=== PATIENT | male | born 1945 | race Caucasian/White ===

== ENCOUNTER → 2019-03-21 | Outpatient (CLI) | payer MEDICARE, OTHER ==
--- NOTE | 2019-03-21 10:54 | REP ---
Left knee: Six views. History: Pain in the left knee. Findings: Six views of the left knee demonstrate medial joint space narrowing and early spurring consistent with osteoarthritis. There is mild lateral tibial plateau spurring as well. A fabella is noted posterolaterally. Vascular calcifications noted. On lateral film, there is osteoarthritic spurring at the superior pole of the patella. Burney view shows lateral patellar spurring. Impression: Medial and patellofemoral compartment osteoarthritic spurring. Medial compartment joint space narrowing. There is also vascular calcification. Electronically Signed by Rishi Srivastava MD 03/21/2019 08:31 P
--- NOTE | 2019-03-21 11:22 | REP ---
Left femur: Four views. History: Pain. Findings: Four views of the left femur show overall normal mineralization. Femoral head is smooth and rounded. Hip joint space is preserved. There is mild superior acetabular spurring. Mild arthritic changes are seen at the knee. Vascular calcification is noted. Impression: Degenerative changes at the knee and hip. Atherosclerotic vascular calcification. No acute bony abnormality. Electronically Signed by Rishi Srivastava MD 03/21/2019 08:32 P
== END ==
LOC: M WUC 09:38
PROVIDERS: ATTEND Physician Assistant
DX: M25.752 Osteophyte, left hip (principal); M17.12 Unilateral primary osteoarthritis, left knee; I70.202 Unspecified atherosclerosis of native arteries of extremities, left leg; M79.652 Pain in left thigh; M25.562 Pain in left knee

== ENCOUNTER → 2019-04-19 | Outpatient (CLI) | payer MEDICARE, OTHER ==
--- NOTE | 2019-04-19 18:45 | REP ---
MRI LEFT THIGH: Multiple sequences were obtained in the axial, coronal and sagittal planes. The left femur is visualized except for the femoral condyles. No abnormal bone marrow signal is seen. There is no occult fracture. No definite bone lesion is seen. Ill defined high signal is seen in the soft-tissues along the greater trochanter of the proximal left femur suggesting greater trochanteric tendinobursitis. This is relatively mild. No other abnormal soft tissue signal is seen. There is no definite suspicious soft tissue mass. Small inguinal lymph nodes do not appear to be pathologically enlarged. IMPRESSION: No occult osseous abnormality. No occult fracture. Findings suggesting mild greater trochanteric tendinobursitis. No other soft-tissue abnormality. Electronically Signed by Armando Ratliff MD 04/20/2019 12:39 P
== END ==
LOC: M RAD 10:51
PROVIDERS: ATTEND Orthopaedic Surgery Sports Medicine
DX: M79.652 Pain in left thigh (principal)

== ENCOUNTER → 2019-04-27 | Outpatient (REF) | payer MEDICARE, OTHER ==
[2019-04-27 18:37] LABS: APPEARANCE, URINE CLEAR (CLEAR); BACTERIA, URINE AUTO NEGATIVE (NEGATIVE); BILIRUBIN, URINE AUTO NEGATIVE (NEGATIVE); BLOOD, URINE BLOOD 2+ (NEGATIVE); CALCIUM OXALATE CRYSTALS SMALL; COLOR, URINE YELLOW (YELLOW); GLUCOSE, URINE (UA) AUTO NEGATIVE (NEGATIVE); KETONE, URINE AUTO NEGATIVE (NEGATIVE); LEUKOCYTE ESTERASE, URINE AUTO NEGATIVE (NEGATIVE); MUCUS, URINE SMALL (NEGATIVE); NITRITE, URINE AUTO NEGATIVE (NEGATIVE); PROTEIN, URINE AUTO NEGATIVE (NEGATIVE); RBC, URINE AUTO 0 /HPF (0-3); SPECIFIC GRAVITY URINE AUTO 1.021 (1.002-1.035); SQUAMOUS EPITHELIAL CELL UR AU 0 /HPF (0-6); WBC, URINE AUTO 2 /HPF (0-3)
== END ==
LOC: M SMT 17:14
PROVIDERS: ATTEND Nurse Practitioner Women's Health
DX: N40.0 Benign prostatic hyperplasia without lower urinary tract symptoms (principal)
CPT/HCPCS: 51798; 81001; 87086; G0463

== ENCOUNTER → 2019-05-08 | Outpatient (REF) | payer MEDICARE, OTHER ==
[2019-05-08 13:56] LABS: BASO % 0.4 % (0.0-1.0); EOS # 0.1 10^3/uL (0.0-0.50); EOS % 1.6 % (0.0-3.0); HEMATOCRIT 46.9 % (42.0-52.0); HEMOGLOBIN 15.4 g/dl (13.5-17.5); LYMPH # 1.9 10^3/uL (1.5-4.5); LYMPH % 23.4 % (24.0-44.0); MEAN CORPUSCULAR HEMOGLOBIN 28.8 pg (27.0-33.0); MEAN CORPUSCULAR HGB CONC 32.8 g/dl (32.0-36.5); MEAN CORPUSCULAR VOLUME 87.7 fl (80.0-96.0); MONO # 0.5 10^3/uL (0.0-0.8); MONO % 6.7 % (0.0-5.0); NEUTROPHILS # 5.4 10^3/uL (1.8-7.7); NEUTROPHILS % 67.4 % (36.0-66.0); PLATELET COUNT, AUTOMATED 187 10^3/uL (150-450); RED BLOOD COUNT 5.35 10^6/uL (4.30-6.10)
[2019-05-08 14:10] LABS: ALBUMIN 3.6 GM/DL (3.2-5.2); ALT/SGPT 95 U/L (12-78); BILIRUBIN,TOTAL 1.8 MG/DL (0.2-1.0); BLOOD UREA NITROGEN 17 MG/DL (7-18); CALCIUM LEVEL 8.8 MG/DL (8.8-10.2); CARBON DIOXIDE LEVEL 26 MEQ/L (21-32); CHLORIDE LEVEL 109 MEQ/L (98-107); GLOMERULAR FILTRATION RATE > 60.0 (>42); GLUCOSE, FASTING 174 MG/DL (70-100); POTASSIUM SERUM 3.9 MEQ/L (3.5-5.1); RHEUMATOID FACTOR QUANT < 10.0 IU/ML (<15.0); SODIUM LEVEL 143 MEQ/L (136-145); THYROID STIMULATING HORMONE 0.373 uIU/ML (0.358-3.740); TOTAL PROTEIN 7.3 GM/DL (6.4-8.2); VITAMIN B12 LEVEL > 2000 PG/ML (247-911)
[2019-05-08 14:11] LABS: FOLATE > 24.0 NG/ML (>5.4)
[2019-05-08 14:14] LABS: HEMOGLOBIN A1c 6.7 %
[2019-05-08 14:21] LABS: ERYTHROCYTE SEDIMENTATION RATE 11 mm/hr (0-20)
[2019-05-09 09:57] LABS: ALBUMIN 4.02 GM/DL (3.29-5.55); ALBUMIN % 55.1 % (55.8-66.1); ALPHA-1-GLOBULIN % 3.7 % (2.9-4.9); ALPHA-1-GLOBULINS 0.27 GM/DL (0.17-0.41); ALPHA-2-GLOBULINS 1.07 GM/DL (0.42-0.99); ALPHA-2-GLOBULINS % 14.7 % (7.1-11.8)
[2019-05-09 09:58] LABS: BETA-1-GLOBULINS 0.46 GM/DL (0.28-0.60); BETA-1-GLOBULINS % 6.3 % (4.7-7.2); BETA-2-GLOBULINS 0.39 GM/DL (0.19-0.55); BETA-2-GLOBULINS % 5.3 % (3.2-6.5); GAMMA GLOBULIN % 14.9 % (11.1-18.8); GAMMA GLOBULINS 1.09 GM/DL (0.65-1.58)
[2019-05-09 10:32] LABS: DRVV SCREEN 36.5 SEC
[2019-05-09 10:34] LABS: PTT LUPUS TYPE ANTICOAG SCREEN 0.9 (0-1.2)
[2019-05-12 14:55] LABS: ANCA-ATYPICAL <1:20 titer (Neg:<1:20); ANTI DS-DNA AB <1:10 titer (.); ANTINUCLEAR ANTIBODIES DIRECT Negative (Negative); CYTOPLASMIC NEUTROP AB ANCA-C <1:20 titer (Neg:<1:20); PERINUCLEAR AB ANCA-P <1:20 titer (Neg:<1:20); SJOGREN'S ANTI SS-A <0.2 AI (0.0-0.9); SJOGREN'S ANTI SS-B <0.2 AI (0.0-0.9); VITAMIN B1 LEVEL WHOLE BLOOD 136.6 nmol/L (66.5-200.0); VITAMIN B6,PYRIDOXAL PHOSPHATE 40.9 ug/L (5.3-46.7); VITAMIN E(ALPHA TOCOPHEROL) 10.9 mg/L (9.0-29.0); VITAMIN E(GAMMA TOCOPHEROL) 1.1 mg/L (0.5-4.9)
== END ==
LOC: M LABNEURO 10:44
PROVIDERS: ATTEND Psychiatry & Neurology Neurology
DX: G62.9 Polyneuropathy, unspecified (principal); E07.9 Disorder of thyroid, unspecified

== ENCOUNTER → 2019-06-08 | Outpatient (CLI) | payer MEDICARE, OTHER | LOC: M SMT 15:18 | PROVIDERS: ATTEND Nurse Practitioner Women's Health | DX: Z12.5 Encounter for screening for malignant neoplasm of prostate (principal) | CPT/HCPCS: 36415; G0103; G0463 ==

== ENCOUNTER → 2019-07-24 | Outpatient (CLI) | payer MEDICARE, OTHER ==
--- NOTE | 2019-07-24 16:18 | REP ---
CT of the chest without IV contrast: Comparison is an outside chest CT from camera failed dated 10/28/2012. There is no Report accompanying the outside CT . There are the following lung nodules: Left upper lobe, 4 mm, previously 4 mm. Right upper lobe, 5 mm, previously 7 mm. The right upper lobe, 4 mm, previously 4 mm. Left upper lobe, 6 mm, previously 6 mm. The left lower lobe, 5 mm, previously 5 mm. Right middle lobe, 4 mm, previously 4 mm. Right middle lobe, 4 mm, previously 5 mm. There are no enlarging lung nodules. There are no new lung nodules. There are no infiltrates or pleural effusions. There is no mediastinal lymph node enlargement. There is no axillary lymph node enlargement. In the absence of IV contrast the study is insensitive for hilar lymph node enlargement. The thoracic aorta is unremarkable except for occasional calcified atheroma. The cardiac size is normal. There is no pericardial effusion. The visualized upper abdominal contents are unremarkable except for a cyst in the upper pole of the left kidney. There is a fixed hiatal hernia, this is unchanged. Impression: There are multiple lung nodules. There has been no nodule enlargement. These are likely granulomas. There are no new nodules. There are no acute infiltrates or effusions. There is a fixed hiatal hernia. There is no lymph node enlargement. Electronically Signed by Armando Lombardo MD 07/24/2019 04:09 P
== END ==
LOC: M RAD 12:52
PROVIDERS: ATTEND Nurse Practitioner Family
DX: R91.8 Other nonspecific abnormal finding of lung field (principal)

== ENCOUNTER → 2020-01-09 | Outpatient (CLI) | payer MEDICARE, OTHER ==
[~2020-01-09] MED LIST: ALLO10TA PO; ASPI81TA85 PO; ATOR80TA59 PO; CELE1CAP4 PO; FLOM0.4C39 PO; LISI-542 PO; MYRB50TA PO; OMEP40CA97 PO; TOPR25TA PO
[2020-01-09 14:05] LABS: HEMOGLOBIN 15.6 g/dl (13.5-17.5); MEAN CORPUSCULAR HEMOGLOBIN 28.3 pg (27.0-33.0); MEAN CORPUSCULAR HGB CONC 32.5 g/dl (32.0-36.5); PLATELET COUNT, AUTOMATED 183 10^3/uL (150-450); RED BLOOD COUNT 5.52 10^6/uL (4.30-6.10)
--- NOTE | 2020-01-09 14:10 | REP ---
Clinical: Preoperative assessment. Benign facet hyperplasia. Technique: PA and lateral. Findings: Large hiatal hernia with air-fluid level noted. Cardiac silhouette is normal. Lung lewis demonstrate chronic-appearing interstitial changes. No focal consolidation, effusion, or pneumothorax. Skeletal structures are intact. Impression: Large hiatal hernia. Chronic changes. Electronically Signed by Shekhar Davila MD 01/09/2020 02:02 P
[2020-01-09 14:16] LABS: INR 1.14; PROTHROMBIN TIME 14.3 SECONDS (11.8-14.0)
[2020-01-09 14:17] LABS: PARTIAL THROMBOPLASTIN TIME 34.3 SECONDS (25.0-38.4)
[2020-01-09 14:43] LABS: BLOOD UREA NITROGEN 11 MG/DL (7-18); CALCIUM LEVEL 9.6 MG/DL (8.8-10.2); CARBON DIOXIDE LEVEL 27 MEQ/L (21-32); CHLORIDE LEVEL 108 MEQ/L (98-107); CREATININE FOR GFR 0.99 MG/DL (0.70-1.30); GLOMERULAR FILTRATION RATE > 60.0 (>42); GLUCOSE, FASTING 129 MG/DL (70-100); SODIUM LEVEL 142 MEQ/L (136-145)
== END ==
LOC: M LAB 13:27
PROVIDERS: ATTEND Nurse Practitioner Women's Health
DX: Z01.818 Encounter for other preprocedural examination (principal); N40.0 Benign prostatic hyperplasia without lower urinary tract symptoms; K44.9 Diaphragmatic hernia without obstruction or gangrene; Z79.82 Long term (current) use of aspirin; Z79.899 Other long term (current) drug therapy

== ENCOUNTER → 2020-01-18 | Outpatient (REF) | payer MEDICARE, OTHER ==
[2020-01-18 17:21] LABS: APPEARANCE, URINE CLEAR (CLEAR); BACTERIA, URINE AUTO NEGATIVE (NEGATIVE); BILIRUBIN, URINE AUTO NEGATIVE (NEGATIVE); BLOOD, URINE BLOOD NEGATIVE (NEGATIVE); CALCIUM OXALATE CRYSTALS SMALL; COLOR, URINE YELLOW (YELLOW); GLUCOSE, URINE (UA) AUTO NEGATIVE (NEGATIVE); KETONE, URINE AUTO NEGATIVE (NEGATIVE); LEUKOCYTE ESTERASE, URINE AUTO NEGATIVE (NEGATIVE); NITRITE, URINE AUTO NEGATIVE (NEGATIVE); PROTEIN, URINE AUTO NEGATIVE (NEGATIVE); RBC, URINE AUTO 1 /HPF (0-3); SPECIFIC GRAVITY URINE AUTO 1.019 (1.002-1.035); SQUAMOUS EPITHELIAL CELL UR AU 0 /HPF (0-6); UROBILINOGEN, URINE AUTO 0.2 mg/dL (0.0-2.0); WBC, URINE AUTO 5 /HPF (0-3)
== END ==
LOC: M SMT 16:48
PROVIDERS: ATTEND Nurse Practitioner Women's Health
DX: Z01.818 Encounter for other preprocedural examination (principal); N40.0 Benign prostatic hyperplasia without lower urinary tract symptoms

== ENCOUNTER 2020-01-26 08:57 | Day surgery (SDC) | payer MEDICARE, OTHER ==
[~2020-01-26] VITALS: Ht 162.6 cm; Wt 86.2 kg
[~2020-01-26 08:57] MED LIST changes: +LIDOCAINE 2% INJ 100 MG/5 ML SDV (FOR ANES.) As Ordered ONE; +LR 1,000 ML IV ONE; +MIDAZOLAM INJ 2 MG/2 ML VIAL (J2250) As Ordered ONE; +ONDANSETRON 4MG/2ML VIAL (J2405) As Ordered ONE; +PHENYLephrine HCL 500 MCG/5 ML (100MCG/ML) SYRINGE (J2370) As Ordered ONE; +ROCURONIUM BROMIDE 50 MG/5 ML VIAL As Ordered ONE; +SUGAMMADEX SODIUM 500 MG/5 ML VIAL (BRIDION) As Ordered ONE; +ceFAZolin SOD 2 GM in IV 1 EA IV ONE; +dexameTHASONE 4 MG/ML 1ML VIAL (J1100) As Ordered ONE; +ePHEDrine SULFATE 25 MG/5 ML(5MG/ML) SYRINGE As Ordered ONE; +fentaNYL 100 MCG/2 ML INJECTION (J3010) As Ordered ONE; +propofoL 200 MG/20 ML VIAL As Ordered ONE
--- NOTE | 2020-01-26 14:00 | RO ---
DATE OF PROCEDURE: 01/26/2020 PREPROCEDURE DIAGNOSIS: Benign prostatic hyperplasia. POSTPROCEDURE DIAGNOSIS: Benign prostatic hyperplasia, bladder tumors. PROCEDURE: Cystoscopy, transurethral resection of bladder tumors (less than 2 cm), urethral meatal dilation. SURGEON: Sherif Desphande MD COMPLEX CASE MANAGER: None. ANESTHESIA: General. OPERATIVE INDICATIONS: This is a 74-year-old male with benign prostatic hyperplasia with symptoms refractory to medical therapy. He was brought to the operating room today with plan to perform a cystoscopy, button trans urethral electrovaporization of the prostate. DESCRIPTION OF PROCEDURE: The patient was brought to the operating room and general anesthesia was induced. Prophylactic antibiotics were infused. He was then placed in the dorsal lithotomy position and prepped and draped in the usual sterile fashion. At this point, I attempted to insert a resectoscope using the visual obturator, but it would not go as the meatus was too narrow. I therefore used curved metal sounds to dilate the urethral meatus to 30 Maldivian. Once that was done, resectoscope was inserted into the urethral meatus and advanced into the bladder. Of note, immediately upon entering the bladder, the patient was found to have an approximately 1.5 cm collection of papillary bladder tumors on the right posterior wall. At this point, the resectoscope was traded out for a regular cystoscope and the bladder was thoroughly examined with a 30 and 70 degree lens and the only area of tumor was the patch on the right posterior wall. The bladder was mildly trebuculated. The patient had bilobar benign prostatic hyperplasia with fairly high riding bladder neck. Because of the finding of these bladder tumors, the decision was made to resect them and given the concern of bladder tumor seeding the prostate if the prostate procedure was performed and the decision was made not to perform the electrovaporization of the prostate. At this point, a loop was utilized to resect the collection of tumors completely. I resected down to the muscle layer. The tumors were then removed from the bladder to be sent for pathologic analysis. The base of the resection was then cauterized using the coagulation current. Once done, there was excellent hemostasis. Once I confirmed all the tumors were out, the resectoscope was removed and an 18-Maldivian England catheter was inserted into the bladder. The balloon was filled with 10 mL of sterile water and then the catheter was connected to gravity drainage. This marked conclusion of the procedure. The patient was taken out of dorsal lithotomy position, awakened from anesthesia and transported to the recovery room in stable condition. ESTIMATED BLOOD LOSS: 5 mL. COMPLICATIONS: None. SPECIMENS: Bladder tumors. PLAN: The patient will followup in the clinic next week for catheter removal and to discuss the pathology results.
[2020-01-26] MEDS ORDERED: ACETAMINOPHEN TAB 650MG DOSE (2X325MG) PO PRN (14:15)
[2020-01-26] MEDS ORDERED: LR 1,000 ML IV SCH (14:15)
[2020-01-26] MEDS ORDERED: fentaNYL 100 MCG/2 ML INJECTION (J3010) IV PRN (14:15)
[2020-01-26] MEDS ORDERED: ONDANSETRON 4MG/2ML VIAL (J2405) IV PRN (14:15)
[2020-01-26] MEDS ORDERED: PERCOCET 5MG/325MG TAB PO PRN (14:15)
[2020-01-26 16:00] VITALS: BP 133/72
== END 2020-01-26 16:31 | disposition home or self-care (01) ==
LOC: M SDC 08:57
PROVIDERS: ATTEND Urology
DX: N40.1 Benign prostatic hyperplasia with lower urinary tract symptoms (principal); C67.4 Malignant neoplasm of posterior wall of bladder; I25.10 Atherosclerotic heart disease of native coronary artery without angina pectoris; I10 Essential (primary) hypertension; F43.10 Post-traumatic stress disorder, unspecified; M10.9 Gout, unspecified; Z79.899 Other long term (current) drug therapy; K21.9 Gastro-esophageal reflux disease without esophagitis; E78.5 Hyperlipidemia, unspecified; Z86.73 Personal history of transient ischemic attack (TIA), and cerebral infarction without residual deficits; Z79.82 Long term (current) use of aspirin
CPT/HCPCS: 52234; 88305; J0690; J1100; J2250; J2370; J2405; J3010

== ENCOUNTER 2020-02-03 18:30 | Inpatient (IN) | payer MEDICARE, OTHER ==
[~2020-02-03] VITALS: Ht 162.6 cm; Wt 90.0 kg
[~2020-02-03 18:30] MED LIST changes: -LIDOCAINE 2% INJ 100 MG/5 ML SDV (FOR ANES.) As Ordered ONE; -LR 1,000 ML IV ONE; -MIDAZOLAM INJ 2 MG/2 ML VIAL (J2250) As Ordered ONE; -ONDANSETRON 4MG/2ML VIAL (J2405) As Ordered ONE; -PHENYLephrine HCL 500 MCG/5 ML (100MCG/ML) SYRINGE (J2370) As Ordered ONE; -ROCURONIUM BROMIDE 50 MG/5 ML VIAL As Ordered ONE; -SUGAMMADEX SODIUM 500 MG/5 ML VIAL (BRIDION) As Ordered ONE; -ceFAZolin SOD 2 GM in IV 1 EA IV ONE; -dexameTHASONE 4 MG/ML 1ML VIAL (J1100) As Ordered ONE; -ePHEDrine SULFATE 25 MG/5 ML(5MG/ML) SYRINGE As Ordered ONE; -fentaNYL 100 MCG/2 ML INJECTION (J3010) As Ordered ONE; -propofoL 200 MG/20 ML VIAL As Ordered ONE
[2020-02-03] MEDS ORDERED: LIDOCAINE 2% 5ML JELLY UROJET TOP ONE (19:15)
[2020-02-03] MEDS ORDERED: NS 1,000 ML IV ONE (19:15)
[2020-02-03 19:53] LABS: BASO % 0.2 % (0.0-1.0); EOS # 0.1 10^3/uL (0.0-0.5); EOS % 0.5 % (0.0-3.0); HEMATOCRIT 46.7 % (42.0-52.0); HEMOGLOBIN 15.5 g/dl (13.5-17.5); LYMPH # 1.2 10^3/uL (1.5-5.0); LYMPH % 7.3 % (24.0-44.0); MEAN CORPUSCULAR HEMOGLOBIN 28.1 pg (27.0-33.0); MEAN CORPUSCULAR HGB CONC 33.2 g/dl (32.0-36.5); MEAN CORPUSCULAR VOLUME 84.6 fl (80.0-96.0); MONO # 1.7 10^3/uL (0.0-0.8); MONO % 10.3 % (0.0-5.0); NEUTROPHILS # 13.7 10^3/uL (1.5-8.5); NEUTROPHILS % 81.1 % (36.0-66.0); PLATELET COUNT, AUTOMATED 218 10^3/uL (150-450); RED BLOOD COUNT 5.52 10^6/uL (4.30-6.10); WHITE BLOOD COUNT 16.9 10^3/uL (4.0-10.0)
[2020-02-03 20:05] LABS: INR 1.1; PROTHROMBIN TIME 13.9 SECONDS (11.8-14.0)
[2020-02-03 20:06] LABS: PARTIAL THROMBOPLASTIN TIME 35.9 SECONDS (25.0-38.4)
[2020-02-03] MEDS ORDERED: LevoFLOXacin IV 750 MG in IV 1 EA IV ONE (21:30)
[2020-02-03] MEDS ORDERED: SODIUM CHLORIDE 0.9% 1000ML IV STA (21:51)
[2020-02-03] MEDS ORDERED: ACETAMINOPHEN 325 MG TAB PO ONE (22:00)
[2020-02-03] MEDS ORDERED: ACET-683 PO (22:22)
[2020-02-03] MEDS ORDERED: ZYLO300T6 PO (22:22)
[2020-02-03] MEDS ORDERED: MAALOX 30 ML SUSP *UDC PO PRN (22:30)
[2020-02-03] MEDS ORDERED: ACETAMINOPHEN TAB 650MG DOSE (2X325MG) PO PRN (22:30)
[2020-02-03] MEDS ORDERED: MOM 30ML SUSPENSION UDC PO PRN (22:30)
[2020-02-03] MEDS ORDERED: LIDOCAINE 2% 5ML JELLY UROJET TOP PRN (22:45)
[2020-02-03 23:00] VITALS: BP 162/78
[2020-02-04] MEDS: OMEPRAZOLE 20 MG CAP PO SCH ×2 (00:08→20:17)
[2020-02-04] MEDS: allopurinoL 300 MG TAB PO SCH ×2 (00:08→20:17)
[2020-02-04] MEDS: PHENAZOPYRIDINE 100 MG TAB PO SCH ×4 (00:08→20:17)
[2020-02-04] MEDS: ATORVASTATIN 20 MG TAB PO SCH ×2 (00:08→20:18)
[2020-02-04] MEDS: ASPIRIN 81 MG ENTERIC TAB PO SCH ×2 (00:08→20:17)
[2020-02-04] MEDS: TAMSULOSIN 0.4 MG CAP PO SCH ×2 (00:09→20:17)
[2020-02-04] MEDS: lisinopriL 5 MG TAB PO SCH ×2 (00:09→16:56)
--- NOTE | 2020-02-04 01:32 | HPEPDOC ---
[facility] Medical History & Physical Date of Admission Feb 03, 2020 Date of Service: Feb 03, 2020 Primary Care Physician: RAFA GERBER MD [facility] Attending Physician: GEMA SHEPHERD MD History and Physical CHIEF COMPLAINT: Fevers HISTORY OF PRESENT ILLNESS: Patient is a 74-year-old male who presents to the emergency department after having fevers and chills earlier today. Patient rece ntly had a cystoscopy with bladder tumor resection on 01/26/2020. Patient has England catheter removed on 02/02/2020 and then began experiencing some dysuria with fevers and chills. Patient presented to the emergency department where he was found have a urinary tract infection. Patient was febrile and tachycardic on presentation. REVIEW OF SYSTEMS: General: Patient endorses fevers and chills but denies night sweats and unintentional weight loss HEENT: Patient denies headaches, changes in vision, sore throat. Cardiovascular: Patient denies chest pain, chest pressure, or palpitations Respiratory: Patient denies shortness of breath, cough GI: Patient denies abdominal pain, nausea, vomiting, diarrhea : Patient endorses pain and burning with urination Neurological: Patient denies numbness or tingling in extremities Extremities: Patient denies swelling or pain in extremities Skin: Patient denies any rashes or lesions. Hematologic: Patient denies any easy bruising. Lymphatic: Patient denies any lumps in his neck, axilla, or groin. PAST MEDICAL HISTORY: 1. BPH. 2. Bladder cancer. 3. Coronary artery disease. 4. Obstructive sleep apnea PAST SURGICAL HISTORY: 1. Cystoscopy with tumor resection. 2. Stent placement. 3. Tonsillectomy. 4. Vasectomy 5. Cataract surgery SOCIAL HISTORY: Patient lives at home with his and they're [facility]. Patient is retired but used to work in the [employer] for 45 years. Patient smoked but quit about 30 years ago. Patient denies alcohol or drug use. FAMILY HISTORY: Patient's brother has had hairy cell leukemia and patient's mother had bladder cancer ALLERGIES: Please see below. HOME MEDICATIONS: Please see below. PHYSICAL EXAMINATION: VITAL SIGNS: Temperature 102.3, pulse 107, respiratory rate 20, blood pressure 162/68, pulse oximetry 95% on room air. General: Alert and oriented male patient who was laying in bed when I walked in the room. Patient was no acute distress HEENT: Normocephalic, atraumatic, moist mucous membranes, posterior pharynx was nonerythematous, tympanic membranes are pearly-coreas without erythema. Neck: No lymphadenopathy, thyromegaly, or carotid bruits. Cardiac: Regular rate and rhythm, no murmurs, normal S1, normal S2 Pulm: Clear to auscultation bilaterally. No wheezes, rhonchi, rales Abd: Nondistended, nontender to palpation, normal bowel sounds Ext: No edema bilateral lower extremities Neuro: No gross neurological defects. Patient was able to move his extremities on command. Skin: Skin of the arms, lower legs, abdomen, back, head and neck were examined did not show any evidence of rash or lesions. LABORATORY DATA: See below. IMAGING: No new imaging is been performed during this admission. MICROBIOLOGY: Please see below. ASSESSMENT: Patient is a 74-year-old male who presents to the hospital with fevers and chills since earlier this afternoon who recently had a urological procedure performed and was diagnosed with urinary tract infection.. PLAN: 1. Sepsis secondary to urinary tract infection. Patient was started on levofloxacin. Patient received fluid bolus. Patient was febrile and tachycardic and had a leukocytosis upon admission. We will check lactic acid, monitor the patient's vital sign and urine out put closely as he recovers. 2. Urinary tract infection. Patient had a recent urological procedure. Patient will have England catheter in place. Urology has been contacted and is aware of the patient. We will continue with levofloxacin until cultures return and start pyridium because mirabegron is not on our formulary. 3. Uncontrolled HTN. Hypertensive urgency has resolved. We will resume his home meds 4. Obstructive sleep apnea. Patient will have home CPAP. 5. Chronic Coronary artery disease. Continue the patient's home medications. 6. Obesity complicating care. He has co-existing sleep apnea. We will check his A1C. 7. DVT prophylaxis: Lovenox. 8. CODE STATUS: Full code Disposition: Patient will be admitted to the progressive care unit for close monitoring of the patient's sepsis. We expect a greater than 2 midnights today. Vital Signs Vital Signs Date Time Temp Pulse Resp B/P (MAP) Pulse Ox O2 Delivery O2 Flow Rate FiO2 3/8/20 00:09 162/68 02/03/20 21:43 102.3 107 20 95 Room Air Laboratory Data Labs 24H Laboratory Tests 2 02/03/20 19:39: Immature Granulocyte % (Auto) 0.6, Neutrophils (%) (Auto) 81.1H, Lymphocytes (%) (Auto) 7.3L, Monocytes (%) (Auto) 10.3H, Eosinophils (%) (Auto) 0.5, Basophils (%) (Auto) 0.2, Neutrophils # (Auto) 13.7H, Lymphocytes # (Auto) 1.2L, Monocytes # (Auto) 1.7H, Eosinophils # (Auto) 0.1, Basophils # (Auto) 0.0, Nucleated Red Blood Cells % (auto) 0.0, Prothrombin Time 13.9, Prothromb Time International R atio 1.10, Activated Partial Thromboplast Time 35.9, Urine Color YELLOW, Urine Appearance HAZY, Urine pH 5.0, Urine Specific Franklin 1.020, Urine Protein NEGATIVE, Urine Glucose (UA) NEGATIVE, Urine Ketones NEGATIVE, Urine Blood 2+H, Urine Nitrite POSITIVEH, Urine Bilirubin NEGATIVE, Urine Urobilinogen 0.2, Urine Leukocyte Esterase 2+H, Urine WBC (Auto) 85H, Urine RBC (Auto) 18H, Urine Hyaline Casts (Auto) 0, Urine Bacteria (Auto) 1+H, Urine Squamous Epithelial Cells 0, Urine Mucus (Auto) SMALL, Urine Sperm (Auto) , Lactic Acid Level 3.0*H 02/03/20 19:44: POC Glucose (Misc Panel) 139H, POC Sodium (Misc Panel) 138, POC Potassium (Misc Panel) 4.2, POC Chloride (Misc Panel) 102, POC Total CO2 (Misc Panel) 24.0, POC Blood Urea Nitrogen (Misc Panel 14, POC Ionized Calcium (Misc Panel) 4.7, POC Creatinine (Misc Panel) 0.8, POC Hematocrit (Misc Panel) 48.0 02/04/20 00:11: Lactic Acid Level 2.2*H CBC/BMP Laboratory Tests 02/03/20 19:39 Microbiology Microbiology 02/04/20 Blood Culture, Received Pending 02/03/20 Blood Culture, Received Pending 02/03/20 Blood Culture, Received Pending 02/03/20 Urine Culture, Received Pending Home Medications Scheduled Allopurinol (Zyloprim) 300 Mg Tablet, 300 MG PO QHS Aspirin (Aspir 81) 81 Mg Tablet.dr, 81 MG PO QHS Atorvastatin Calcium (Atorvastatin Calcium) 80 Mg Tablet, 80 MG PO QHS Celecoxib (Celebrex) 200 Mg Capsule, 200 MG PO DAILY Lisinopril (Lisinopril) 5 Mg Tablet, 5 MG PO QPM TAKES AT DINNERTIME Metoprolol Succinate (Toprol Xl) 25 Mg Tab.er.24h, 25 MG PO DAILY Mirabegron (Myrbetriq) 50 Mg Tab.er.24h, 50 MG PO DAILY Omeprazole (Omeprazole) 40 Mg Capsule.dr, 40 MG PO QHS Tamsulosin HCl (Flomax) 0.4 Mg Capsule, 0.4 MG PO QHS Scheduled PRN Acetaminophen (Acetaminophen) 500 Mg Tablet, 1,000 MG PO Q6H PRN for PAIN Allergies Coded Allergies: No Known Allergies (Unverified , 01/01/20) A-FIB/CHADSVASC A-FIB History Current/History of A-Fib/PAF?: No GME ATTESTATION GME ATTESTATION My faculty preceptor for this patient encounter was physically present during the encounter and was fully available. All aspects of the patient interview, examination, medical decision making process, and medical care plan development were reviewed and approved by the faculty preceptor. The faculty preceptor is aware and concurs with the plan as stated in the body of this note and will attest to such by his/her cosignature. ATTENDING NOTE Time of service 10:30 PM I reviewed and edited the note and agree with the findings as documented. Mr. Slater is a 74-year-old with a past medical history of bladder cancer, CAD, DARYL, and BPH who underwent bladder tumor resection on the and had a England removed yesterday. Today he will be admitted for management of sepsis secondary to UTI and uncontrolled blood pressure. - We will follow-up with urology in the morning . Rest per Dr. Correa note JAYY MONTERROSO DO Feb 04, 2020 01:32 GEMA SHEPHERD MD Feb 04, 2020 04:14
[2020-02-04 04:00] VITALS: BP 147/86
[2020-02-04 05:07] LABS: HEMATOCRIT 45.2 % (42.0-52.0); HEMOGLOBIN 14.9 g/dl (13.5-17.5); MEAN CORPUSCULAR HEMOGLOBIN 28.1 pg (27.0-33.0); MEAN CORPUSCULAR VOLUME 85.1 fl (80.0-96.0); PLATELET COUNT, AUTOMATED 192 10^3/uL (150-450); RED BLOOD COUNT 5.31 10^6/uL (4.30-6.10); WHITE BLOOD COUNT 21.6 10^3/uL (4.0-10.0)
[2020-02-04 05:12] LABS: BLOOD UREA NITROGEN 13 MG/DL (7-18); CALCIUM LEVEL 8.7 MG/DL (8.8-10.2); CARBON DIOXIDE LEVEL 24 MEQ/L (21-32); CHLORIDE LEVEL 108 MEQ/L (98-107); CREATININE FOR GFR 0.97 MG/DL (0.70-1.30); GLOMERULAR FILTRATION RATE > 60.0 (>42); GLUCOSE, FASTING 145 MG/DL (70-100); MAGNESIUM LEVEL 1.7 MG/DL (1.8-2.4); SODIUM LEVEL 140 MEQ/L (136-145)
[2020-02-04 05:13] LABS: HEMOGLOBIN A1c 6.8 %
[2020-02-04] MEDS ORDERED: MAGNESIUM OXIDE 400 MG TAB (MAG-OX) PO ONE (05:30)
[2020-02-04] MEDS: ENOXAPARIN 40 MG/0.4 ML SYRINGE (J1650) SC SCH (05:40)
[2020-02-04 08:00] VITALS: BP 152/81
[2020-02-04] MEDS: SENOKOT S TAB PO SCH ×2 (09:00→19:43)
[2020-02-04] MEDS: MIRALAX *UNIT DOSE* 17GM PACKET PO SCH (09:00)
[2020-02-04] MEDS ORDERED: ENTER DRUG NAME HERE (PATIENT'S OWN MED) PO SCH (09:00)
[2020-02-04] MEDS: METOPROLOL SUCC *XL* 25MG TAB (TopROL *XL*) PO SCH (09:46)
[2020-02-04] MEDS: cefTRIAXone SOD 2 GM in D5W MINI-BAG PLUS 50 ML IV SCH (09:46)
[2020-02-04] MEDS: CelecoXIB (CeleBREX) 100 MG CAP PO SCH (09:46)
[2020-02-04] MEDS ORDERED: MAG SULF 1GM/100ML (MAG RUN) 1 GM in IV 1 EA IV ONE (10:00)
[2020-02-04] MEDS ORDERED: PERCOCET 5MG/325MG TAB PO ONE (10:00)
[2020-02-04] MEDS: NS 1,000 ML IV SCH ×2 (10:40→21:35)
[2020-02-04 12:00] VITALS: BP 108/59
[2020-02-04] MEDS ORDERED: PERCOCET 5MG/325MG TAB PO PRN (14:00)
[2020-02-04 15:53] VITALS: BP 124/62
[2020-02-04] MEDS ORDERED: LevoFLOXacin IV 750 MG in IV 1 EA IV SCH (21:00)
--- NOTE | 2020-02-04 21:40 | IPN ---
DATE: 02/04/2020 Patient complains of a severe pain at the England catheter site, screaming at the bedside, rating the pain as sharp, 10/10. Appears to be draining well. The patient had bladder tumor resection January 26, status post cystoscopy. Had catheter removed February 01 and presents with severe pain, fever, chills, and dysuria. Pain does not radiate and stays in the England catheter site. Not improvement with pain despite lidocaine. No gross hematuria. No fever this morning. Had a maximal temperature overnight of 102.3. Current temperature 97.4, pulse 105, sinus, respiratory rate 18, blood pressure 152/81, 91% on room air. GENERAL: Patient is awake, alert, oriented times three, answering questions appropriately. LUNGS: Clear to auscultation. No wheezes, rales, or rhonchi. HEART: S1, S2, sinus tachycardia. ABDOMEN: Soft, nontender, nondistended. Positive bowel sounds with England catheter in place. EXTREMITIES: No cyanosis, clubbing, or pitting edema. LABORATORY DATA: White count 21.6, hemoglobin 14, hematocrit 45, platelet count 192. Sodium 140, potassium 4, chloride 108, bicarbonate 24, BUN 13, creatinine 0.97, glucose 145. ASSESSMENT AND PLAN: This is a 74-year-old male with a history of BPH, bladder cancer, coronary artery disease (CAD), obstructive sleep apnea (DARYL) with recent bladder tumor resection 01/26/2020 who presents with increasing dysuria, pain, fever, chills, and urine retention after England was removed on February 01. ACTIVE ISSUES: 1. Urine retention requiring England catheter placement with severe pain. It appears to be draining and flushing well. Trial of IV fluids until lactic is normal. 2. Urinary tract infection related to recent England catheter placement and recent bladder tumor removal. Recent England catheter placement. It was discontinued on 02/02/2020. Patient was given Levaquin with worsening white count to 21,000. Therefore, we will change to intravenous ceftriaxone. Await urine culture results. 3. Sepsis secondary to urinary tract infection from previous indwelling catheter, currently on IV ceftriaxone with persistent lactic acidosis. Will continue IV fluid hydration, antibiotics, and supportive care. Pyridium for pain. As-needed Percocet. 4. Bladder cancer status post bladder tumor resection January 26. Defer to urology. 5. Deep vein thrombosis (DVT) prophylaxis. Compression stockings.
[2020-02-04 22:00] VITALS: BP 150/77
[2020-02-05] MEDS: ENOXAPARIN 40 MG/0.4 ML SYRINGE (J1650) SC SCH (05:42)
[2020-02-05 06:00] VITALS: BP 136/76
[2020-02-05 07:38] LABS: BASO % 0.2 % (0.0-1.0); EOS # 0.1 10^3/uL (0.0-0.5); EOS % 0.5 % (0.0-3.0); HEMATOCRIT 40.1 % (42.0-52.0); HEMOGLOBIN 13.4 g/dl (13.5-17.5); LYMPH # 1.7 10^3/uL (1.5-5.0); LYMPH % 10.6 % (24.0-44.0); MEAN CORPUSCULAR HEMOGLOBIN 28.5 pg (27.0-33.0); MEAN CORPUSCULAR HGB CONC 33.4 g/dl (32.0-36.5); MEAN CORPUSCULAR VOLUME 85.3 fl (80.0-96.0); MONO # 1.3 10^3/uL (0.0-0.8); MONO % 7.8 % (0.0-5.0); NEUTROPHILS % 80.2 % (36.0-66.0); PLATELET COUNT, AUTOMATED 174 10^3/uL (150-450); WHITE BLOOD COUNT 16.2 10^3/uL (4.0-10.0)
[2020-02-05 08:05] LABS: ALBUMIN 2.8 GM/DL (3.2-5.2); ALT/SGPT 31 U/L (12-78); BILIRUBIN,TOTAL 1.8 MG/DL (0.2-1.0); BLOOD UREA NITROGEN 11 MG/DL (7-18); CALCIUM LEVEL 8.7 MG/DL (8.8-10.2); CARBON DIOXIDE LEVEL 24 MEQ/L (21-32); CHLORIDE LEVEL 111 MEQ/L (98-107); CREATININE FOR GFR 0.88 MG/DL (0.70-1.30); GLOMERULAR FILTRATION RATE > 60.0 (>42); GLUCOSE, FASTING 109 MG/DL (70-100); PHOSPHORUS LEVEL 2.2 MG/DL (2.5-4.9); POTASSIUM SERUM 3.8 MEQ/L (3.5-5.1); SODIUM LEVEL 141 MEQ/L (136-145); TOTAL PROTEIN 6.8 GM/DL (6.4-8.2)
[2020-02-05] MEDS ORDERED: LEVA750T7 PO ×2 (08:41→10:30)
[2020-02-05 08:44] LABS: ERYTHROCYTE SEDIMENTATION RATE 53 mm/hr (0-20)
[2020-02-05] MEDS: SENOKOT S TAB PO SCH (08:56)
[2020-02-05] MEDS: MIRALAX *UNIT DOSE* 17GM PACKET PO SCH (08:56)
[2020-02-05] MEDS ORDERED: oxyBUTYnin *DITROPAN XL* 5 MG TABCR PO SCH (09:00)
[2020-02-05] MEDS: PHENAZOPYRIDINE 100 MG TAB PO SCH (09:09)
[2020-02-05 09:11] VITALS: BP 164/85
[2020-02-05] MEDS: CelecoXIB (CeleBREX) 100 MG CAP PO SCH (09:11)
[2020-02-05] MEDS: METOPROLOL SUCC *XL* 25MG TAB (TopROL *XL*) PO SCH (09:11)
[2020-02-05] MEDS: cefTRIAXone SOD 2 GM in D5W MINI-BAG PLUS 50 ML IV SCH (09:12)
[2020-02-05] MEDS ORDERED: PHEN-593 PO (10:28)
[2020-02-05] MEDS ORDERED: PYRI1TAB5 PO (10:30)
--- NOTE | 2020-02-05 13:26 | DS.PDOC ---
Discharge Summary General Date of Admission Feb 03, 2020 at 21:51 Date of Discharge 02/05/20 Discharge Summary DISCHARGE DIAGNOSES: Urine retention requiring Mcmullen catheter placement Pseudomonas Urinary tract infection related to recent Mcmullen catheter Sepsis secondary to urinary tract infection from previous indwelling catheter, Bladder cancer status post bladder tumor resection January 26 BPH coronary artery disease (CAD) obstructive sleep apnea (DARYL) DISCHARGE MEDICATIONS: PLS SEE BELOW HOSPITAL COURSE: This is a 74-year-old male with a history of BPH, bladder cancer, coronary artery disease (CAD), obstructive sleep apnea (DARYL) with recent bladder tumor resection 01/26/2020 who presents with increasing dysuria, pain, fever, chills, and urine retention after Mcmullen was removed on February 01. Urine retention requiring Mcmullen catheter placement with severe pain. It appears to be draining and flushing well. He received a Trial of IV fluids until his lactic acid resolved. outpt fu w urology for trial of void and dc mcmullen asoutpt. pt is familiar with mcmullen care . Pseudomonas Urinary tract infection related to recent Mcmullen catheter placement and recent bladder tumor removal. Recent Mcmullen catheter placement. It was discontinued on 02/02/2020. Patient was given Levaquin with worsening white count to 21,000. Therefore, he was changed to intravenous ceftriaxone and remained afebrile with decreased wbc toward normal. pt is discharge on po levaquin to complete a full course at home, and to have immediate fu with his urologist. Sepsis secondary to urinary tract infection from previous indwelling catheter, s/p ceftriaxone and iv fluids with resolution of his lactic acidosis. Pyridium for pain. As-needed Percocet. Bladder cancer status post bladder tumor resection January 26. Defer to urology for maintenance surveillance and further treatment DISCHARGE PHYSICAL EXAMINATION: VITALS: PLS SEE BELOW GENERAL: Patient is awake, alert, oriented times three, answering questions appropriately. LUNGS: Clear to auscultation. No wheezes, rales, or rhonchi. HEART: S1, S2, sinus tachycardia. ABDOMEN: Soft, nontender, nondistended. Positive bowel sounds with Mcmullen catheter in place. EXTREMITIES: No cyanosis, clubbing, or pitting edema. DISCHARGE LABORATORY DATA:PLS SEE BELOW DISCHARGE INSTRUCTIONS: IMMEDIATE FU WITH UROLOGIST WITHIN 1 WK OF DISCHARGE. RETURN TO ER WITH RECURRENT SYMPTOMS, PCP FU IN 1WK. TIME SPENT ON DISCHARGE; 30 MIN Vital Signs/I&Os Vital Signs Date Time Temp Pulse Resp B/P (MAP) Pulse Ox O2 Delivery O2 Flow Rate FiO2 02/05/20 09:11 102 164/85 02/05/20 06:00 99.1 18 93 Room Air I&O- Last 24 Hours up to 6 AM 02/05/20 06:00 Intake Total 2218 ml Output Total 2850 ml Balance -632 ml Laboratory Data Labs 24H Laboratory Tests 2 02/05/20 07:13: Immature Granulocyte % (Auto) 0.7, Neutrophils (%) (Auto) 80.2H, Lymphocytes (%) (Auto) 10.6L, Monocytes (%) (Auto) 7.8H, Eosinophils (%) (Auto) 0.5, Basophils (%) (Auto) 0.2, Neutrophils # (Auto) 13.0H, Lymphocytes # (Auto) 1.7, Monocytes # (Auto) 1.3H, Eosinophils # (Auto) 0.1, Basophils # (Auto) 0.0, Nucleated Red Blood Cells % (auto) 0.0, Erythrocyte Sedimentation Rate 53H, Anion Gap 6L, Glomerular Filtration Rate > 60.0, Calcium Level 8.7L, Phosphorus Level 2.2L, Magnesium Level 2.0, Total Bilirubin 1.8H, Aspartate Amino Transf (AST/SGOT) 23, Alanine Aminotransferase (ALT/SGPT) 31, Alkaline Phosphatase 78, C-Reactive Protein, Quantitative 15.10H, Total Protein 6.8, Albumin 2.8L, Albumin/Globulin Ratio 0.70L CBC/BMP Laboratory Tests 02/05/20 07:13 Microbiology Microbiology 02/04/20 Blood Culture - Preliminary, Resulted No growth after 24 hours . All specim... 02/03/20 Blood Culture - Preliminary, Resulted No growth after 24 hours . All specim... 02/03/20 Blood Culture - Preliminary, Resulted No growth after 24 hours . All specim... 02/03/20 Urine Culture - Preliminary, Resulted Pseudomonas Aeruginosa Discharge Medications Scheduled Allopurinol (Zyloprim) 300 Mg Tablet, 300 MG PO QHS, (Reported) Aspirin (Aspir 81) 81 Mg Tablet.dr, 81 MG PO QHS, (Reported) Atorvastatin Calcium (Atorvastatin Calcium) 80 Mg Tablet, 80 MG PO QHS, (Rep orted) Celecoxib (Celebrex) 200 Mg Capsule, 200 MG PO DAILY, (Reported) Levofloxacin (Levaquin) 750 Mg Tablet, 750 MG PO DAILY Levofloxacin (Levaquin) 750 Mg Tablet, 1 TAB PO DAILY Lisinopril (Lisinopril) 5 Mg Tablet, 5 MG PO QPM, (Reported) TAKES AT DINNERTIME Metoprolol Succinate (Toprol Xl) 25 Mg Tab.er.24h, 25 MG PO DAILY, (Reported) Mirabegron (Myrbetriq) 50 Mg Tab.er.24h, 50 MG PO DAILY, (Reported) Omeprazole (Omeprazole) 40 Mg Capsule.dr, 40 MG PO QHS, (Reported) Phenazopyridine HCl (Phenazopyridine HCl) 100 Mg Tablet, 100 MG PO TID Phenazopyridine HCl (Pyridium) 200 Mg Tablet, 1 TAB PO TID for urinary discomfort Tamsulosin HCl (Flomax) 0.4 Mg Capsule, 0.4 MG PO QHS, (Reported) Scheduled PRN Acetaminophen (Acetaminophen) 500 Mg Tablet, 1,000 MG PO Q6H PRN for PAIN, (Reported) Allergies Coded Allergies: No Known Allergies (Unverified , 01/01/20) KELVIN MCINTYRE MD Feb 05, 2020 13:23
== END 2020-02-05 12:26 | disposition home health service (06) | DRG 698 ==
LOC: M ED 18:30 → M ED INP 21:51 → ENRESERV 22:18 → M PCU 23:00 → M MSPAV 02-04 15:45
PROVIDERS: ADMIT Internal Medicine; ATTEND General Practice
DX: T83.511A Infection and inflammatory reaction due to indwelling urethral catheter, initial encounter (principal); A41.9 Sepsis, unspecified organism; E87.2 Acidosis; N39.0 Urinary tract infection, site not specified; N40.1 Benign prostatic hyperplasia with lower urinary tract symptoms; C67.9 Malignant neoplasm of bladder, unspecified; I25.10 Atherosclerotic heart disease of native coronary artery without angina pectoris; G47.33 Obstructive sleep apnea (adult) (pediatric); R33.9 Retention of urine, unspecified; I10 Essential (primary) hypertension; E66.9 Obesity, unspecified; Z79.82 Long term (current) use of aspirin; Z79.899 Other long term (current) drug therapy; B96.5 Pseudomonas (aeruginosa) (mallei) (pseudomallei) as the cause of diseases classified elsewhere; Z98.49 Cataract extraction status, unspecified eye; Z87.891 Personal history of nicotine dependence; Y83.1 Surgical operation with implant of artificial internal device as the cause of abnormal reaction of the patient, or of later complication, without mention of misadventure at the time of the procedure; Z68.34 Body mass index [BMI] 34.0-34.9, adult

== ENCOUNTER → 2020-02-09 | Outpatient (CLI) | payer MEDICARE, OTHER ==
[~2020-02-09] MED LIST changes: +ACET-683 PO; +ISOVUE-370 76% 100ML VIAL (Q9967) As Ordered ONE; +LEVA750T7 PO; +PHEN-593 PO; +PYRI1TAB5 PO; +ZYLO300T6 PO
--- NOTE | 2020-02-09 10:13 | REP ---
CT of the abdomen pelvis without and with IV contrast, CT urogram protocol: There are no comparison studies. The visualized lung lewis are unremarkable, except for a hiatal hernia containing the gastric fundus measuring 6.1 cm in diameter. The hepatic parenchyma is homogeneous. There are tiny gallbladder calculi in the gallbladder fundus. The gallbladder is otherwise unremarkable. There is no biliary duct dilatation. The pancreas and spleen are normal size and unremarkable. The adrenals are unremarkable. The there are approximate five left renal cysts and a single right renal cyst, all Bosniak type 1 cysts. The largest cyst is on the left at the mid pole posteriorly measuring 2.7 cm. There are no solid renal masses. There are no renal calculi. There is no hydronephrosis. There is no ureteral distension or obstruction. There is a [place] catheter in the bladder. The bladder is nondistended. There is diffuse bladder wall thickening, nonspecific, secondary to bladder nonsustained tube versus circumferential inflammation or circumferential neoplasm. The abdominal aorta is unremarkable except for occasional calcified atheroma. There is no periaortic adenopathy or mass. The bowel and mesentery are unremarkable except for occasional sigmoid colon diverticula without diverticulitis. There is wall thickening of the sigmoid colon, nonspecific, artifact from under distension versus colitis. The Pelvis: The the the appendix is unremarkable. There is no pelvic adenopathy or ascites. There is a 7 mm calcification posterior inferior to the bladder, likely a prostatolith. Impression: There is a [place] catheter in the bladder and the bladder is collapsed and cannot be further evaluated by CT. There is diffuse circumferential bladder wall thickening which could be artifact from bladder distension, inflammation or neoplasm. There is no hydronephrosis or hydroureter on the right on the left. There are no renal calculi. There are no solid renal masses. There are multiple bilateral Bosniak type 1 renal cysts. Hiatal hernia. No adenopathy, ascites or mass. Cholelithiasis. Otherwise, negative CT of the abdomen and pelvis. Electronically Signed by Armando Lombardo MD 02/09/2020 10:04 A
== END ==
LOC: M RAD 08:08
PROVIDERS: ATTEND Urology
DX: K44.9 Diaphragmatic hernia without obstruction or gangrene (principal); K80.20 Calculus of gallbladder without cholecystitis without obstruction; N32.89 Other specified disorders of bladder; N28.1 Cyst of kidney, acquired; C67.9 Malignant neoplasm of bladder, unspecified; Z96.0 Presence of urogenital implants
CPT/HCPCS: 74178; Q9967

== ENCOUNTER → 2020-03-05 | Outpatient (REF) | payer MEDICARE, OTHER ==
[~2020-03-05] MED LIST changes: -ASPI81TA85 PO; +ASPI81TA86 PO; -ISOVUE-370 76% 100ML VIAL (Q9967) As Ordered ONE; -LISI-542 PO; +LISI-898 PO; -PHEN-593 PO; +PHEN1TAB73 PO
[2020-03-05 17:44] LABS: APPEARANCE, URINE HAZY (CLEAR); BACTERIA, URINE AUTO 1+ (NEGATIVE); BILIRUBIN, URINE AUTO NEGATIVE (NEGATIVE); BLOOD, URINE BLOOD 1+ (NEGATIVE); COLOR, URINE YELLOW (YELLOW); GLUCOSE, URINE (UA) AUTO NEGATIVE (NEGATIVE); KETONE, URINE AUTO NEGATIVE (NEGATIVE); LEUKOCYTE ESTERASE, URINE AUTO 2+ (NEGATIVE); NITRITE, URINE AUTO NEGATIVE (NEGATIVE); PROTEIN, URINE AUTO NEGATIVE (NEGATIVE); RBC, URINE AUTO 2 /HPF (0-3); SPECIFIC GRAVITY URINE AUTO 1.005 (1.002-1.035); SQUAMOUS EPITHELIAL CELL UR AU 0 /HPF (0-6); UROBILINOGEN, URINE AUTO 0.2 mg/dL (0.0-2.0); WBC, URINE AUTO 66 /HPF (0-3)
== END ==
LOC: M SMT 16:50
PROVIDERS: ATTEND Urology
DX: C67.9 Malignant neoplasm of bladder, unspecified (principal); N40.0 Benign prostatic hyperplasia without lower urinary tract symptoms

== ENCOUNTER → 2020-03-05 | Outpatient (REF) | payer MEDICARE, OTHER ==
[~2020-03-05] MED LIST changes: +ASPI81TA85 PO; -ASPI81TA86 PO; +LISI-542 PO; -LISI-898 PO; +PHEN-593 PO; -PHEN1TAB73 PO
[2020-03-05 17:49] LABS: HEMATOCRIT 44.5 % (42.0-52.0); HEMOGLOBIN 14.5 g/dl (13.5-17.5); MEAN CORPUSCULAR HEMOGLOBIN 28.1 pg (27.0-33.0); MEAN CORPUSCULAR HGB CONC 32.6 g/dl (32.0-36.5); MEAN CORPUSCULAR VOLUME 86.2 fl (80.0-96.0); PLATELET COUNT, AUTOMATED 170 10^3/uL (150-450); RED BLOOD COUNT 5.16 10^6/uL (4.30-6.10); WHITE BLOOD COUNT 7.6 10^3/uL (4.0-10.0)
[2020-03-05 17:57] LABS: ALBUMIN 3.8 GM/DL (3.2-5.2); ALT/SGPT 88 U/L (12-78); BLOOD UREA NITROGEN 14 MG/DL (7-18); CALCIUM LEVEL 9.5 MG/DL (8.8-10.2); CARBON DIOXIDE LEVEL 27 MEQ/L (21-32); CHLORIDE LEVEL 107 MEQ/L (98-107); CREATININE FOR GFR 0.94 MG/DL (0.70-1.30); GLOMERULAR FILTRATION RATE > 60.0 (>42); GLUCOSE, FASTING 154 MG/DL (70-100); POTASSIUM SERUM 3.8 MEQ/L (3.5-5.1); SODIUM LEVEL 139 MEQ/L (136-145); TOTAL PROTEIN 7.5 GM/DL (6.4-8.2)
== END ==
LOC: M LABSMT 13:59
PROVIDERS: ATTEND Urology
DX: C67.9 Malignant neoplasm of bladder, unspecified (principal)

== ENCOUNTER → 2020-03-21 | Outpatient (REF) | payer MEDICARE, OTHER ==
[2020-03-21 18:14] LABS: APPEARANCE, URINE CLEAR (CLEAR); BACTERIA, URINE AUTO NEGATIVE (NEGATIVE); BILIRUBIN, URINE AUTO NEGATIVE (NEGATIVE); BLOOD, URINE BLOOD NEGATIVE (NEGATIVE); COLOR, URINE YELLOW (YELLOW); GLUCOSE, URINE (UA) AUTO NEGATIVE (NEGATIVE); KETONE, URINE AUTO NEGATIVE (NEGATIVE); LEUKOCYTE ESTERASE, URINE AUTO 2+ (NEGATIVE); NITRITE, URINE AUTO NEGATIVE (NEGATIVE); PROTEIN, URINE AUTO NEGATIVE (NEGATIVE); RBC, URINE AUTO 2 /HPF (0-3); SPECIFIC GRAVITY URINE AUTO 1.014 (1.002-1.035); SQUAMOUS EPITHELIAL CELL UR AU 0 /HPF (0-6); UROBILINOGEN, URINE AUTO 0.2 mg/dL (0.0-2.0); WBC, URINE AUTO 53 /HPF (0-3)
== END ==
LOC: M SMT 16:39
PROVIDERS: ATTEND Urology
DX: N39.0 Urinary tract infection, site not specified (principal)

== ENCOUNTER → 2020-04-02 | Outpatient (CLI) | payer MEDICARE, OTHER ==
[2020-04-02 14:25] LABS: ALBUMIN 3.7 GM/DL (3.2-5.2); BILIRUBIN,DIRECT 0.3 MG/DL (0.0-0.2); BILIRUBIN,TOTAL 1.8 MG/DL (0.2-1.0); TOTAL PROTEIN 7.4 GM/DL (6.4-8.2)
== END ==
LOC: M PLALAB 10:16
PROVIDERS: ATTEND Urology
DX: R74.8 Abnormal levels of other serum enzymes (principal)

== ENCOUNTER → 2020-05-06 | Outpatient (REF) | payer MEDICARE, OTHER | LOC: M SMT 17:12 | PROVIDERS: ATTEND Urology | DX: C67.9 Malignant neoplasm of bladder, unspecified (principal) ==

== ENCOUNTER → 2020-08-19 | Outpatient (REF) | payer MEDICARE, OTHER ==
[~2020-08-19] MED LIST changes: -ASPI81TA85 PO; +ASPI81TA86 PO
== END ==
LOC: M SMT 12:55
PROVIDERS: ATTEND Urology
DX: C67.9 Malignant neoplasm of bladder, unspecified (principal)

== ENCOUNTER → 2020-12-10 | Outpatient (CLI) | payer SELFPAY ==
[~2020-12-10] MED LIST changes: -PHEN-593 PO; +PHEN1TAB73 PO
== END ==
LOC: M LABSMTC 12:50
PROVIDERS: ATTEND Pediatrics
DX: Z20.822 Contact with and (suspected) exposure to COVID-19 (principal)

== ENCOUNTER → 2021-01-20 | Outpatient (REF) | payer MEDICARE, OTHER ==
[~2021-01-20] MED LIST changes: -LISI-542 PO; +LISI-898 PO
== END ==
LOC: M SMT 13:10
PROVIDERS: ATTEND Urology
DX: C67.9 Malignant neoplasm of bladder, unspecified (principal)

== ENCOUNTER → 2021-02-27 | Outpatient (CLI) | payer MEDICARE, OTHER | LOC: M LAB 09:32 | PROVIDERS: ATTEND Urology | DX: Z12.5 Encounter for screening for malignant neoplasm of prostate (principal) ==

== ENCOUNTER → 2021-02-27 | Outpatient (CLI) | payer MEDICARE, OTHER ==
[2021-02-27 11:05] LABS: HEMATOCRIT 45.9 % (42.0-52.0); HEMOGLOBIN 14.9 g/dl (13.5-17.5); MEAN CORPUSCULAR HEMOGLOBIN 28.2 pg (27.0-33.0); MEAN CORPUSCULAR HGB CONC 32.5 g/dl (32.0-36.5); MEAN CORPUSCULAR VOLUME 86.8 fl (80.0-96.0); PLATELET COUNT, AUTOMATED 173 10^3/uL (150-450); RED BLOOD COUNT 5.29 10^6/uL (4.30-6.10); WHITE BLOOD COUNT 6.4 10^3/uL (4.0-10.0)
[2021-02-27 12:08] LABS: ALBUMIN 3.5 GM/DL (3.2-5.2); ALT/SGPT 77 U/L (12-78); BILIRUBIN,TOTAL 1.5 MG/DL (0.2-1.0); BLOOD UREA NITROGEN 12 MG/DL (7-18); CALCIUM LEVEL 9.3 MG/DL (8.8-10.2); CARBON DIOXIDE LEVEL 26 MEQ/L (21-32); CHLORIDE LEVEL 108 MEQ/L (98-107); CHOLESTEROL LEVEL 125 MG/DL (<200); CHOLESTEROL RISK RATIO 3.787 (<5); CREATININE FOR GFR 0.78 MG/DL (0.70-1.30); GLOMERULAR FILTRATION RATE > 60.0 (>42); GLUCOSE, FASTING 140 MG/DL (70-100); HDL CHOLESTEROL 33 MG/DL (>40); LDL CHOLESTEROL 37 MG/DL (<100); NON-HDL-C 92 MG/DL; SODIUM LEVEL 141 MEQ/L (136-145); TRIGLYCERIDES LEVEL 274 MG/DL (<150); URIC ACID 3.1 MG/DL (3.5-7.2)
[2021-02-27 15:12] LABS: HEMOGLOBIN A1c 6.8 %
== END ==
LOC: M LAB 09:28
PROVIDERS: ATTEND Family Medicine
DX: M10.9 Gout, unspecified (principal); R73.01 Impaired fasting glucose; I10 Essential (primary) hypertension

== ENCOUNTER → 2021-07-07 | Outpatient (REF) | payer MEDICARE, OTHER ==
[~2021-07-07] MED LIST changes: +OMEP40CA4 PO; -OMEP40CA97 PO
== END ==
LOC: M SMT 13:44
PROVIDERS: ATTEND Urology
DX: C67.9 Malignant neoplasm of bladder, unspecified (principal)

== ENCOUNTER → 2021-10-13 | Outpatient (REF) | payer MEDICARE, OTHER | LOC: M SMT 13:34 | PROVIDERS: ATTEND Urology | DX: C67.9 Malignant neoplasm of bladder, unspecified (principal) | CPT/HCPCS: 52000; 88108; G0463 ==

== ENCOUNTER → 2022-01-12 | Outpatient (REF) | payer MEDICARE, OTHER ==
[~2022-01-12] MED LIST changes: -LISI-898 PO; +LISI5TAB11 PO
== END ==
LOC: M SMT 16:48
PROVIDERS: ATTEND Urology
DX: C67.9 Malignant neoplasm of bladder, unspecified (principal)

== ENCOUNTER → 2022-03-02 | Outpatient (CLI) | payer MEDICARE, OTHER ==
[2022-03-02 11:17] LABS: HEMATOCRIT 46.4 % (42.0-52.0); HEMOGLOBIN 15.2 g/dl (13.5-17.5); MEAN CORPUSCULAR HEMOGLOBIN 28.5 pg (27.0-33.0); MEAN CORPUSCULAR HGB CONC 32.8 g/dl (32.0-36.5); MEAN CORPUSCULAR VOLUME 87.1 fl (80.0-96.0); PLATELET COUNT, AUTOMATED 144 10^3/uL (150-450); RED BLOOD COUNT 5.33 10^6/uL (4.30-6.10); WHITE BLOOD COUNT 7.8 10^3/uL (4.0-10.0)
[2022-03-02 11:48] LABS: BLOOD UREA NITROGEN 13 MG/DL (7-18); CALCIUM LEVEL 9.1 MG/DL (8.8-10.2); CARBON DIOXIDE LEVEL 29 MEQ/L (21-32); CHLORIDE LEVEL 109 MEQ/L (98-107); CREATININE FOR GFR 0.86 MG/DL (0.70-1.30); GLOMERULAR FILTRATION RATE > 60.0 (>42); GLUCOSE, FASTING 150 MG/DL (70-100); POTASSIUM SERUM 3.9 MEQ/L (3.5-5.1); SODIUM LEVEL 142 MEQ/L (136-145)
== END ==
LOC: M LAB 10:14
PROVIDERS: ATTEND Urology
DX: C67.9 Malignant neoplasm of bladder, unspecified (principal); K44.9 Diaphragmatic hernia without obstruction or gangrene; M51.9 Unspecified thoracic, thoracolumbar and lumbosacral intervertebral disc disorder; Z79.899 Other long term (current) drug therapy

== ENCOUNTER → 2022-03-04 | Outpatient (CLI) | payer MEDICARE, OTHER | LOC: M RAD 09:17 | PROVIDERS: ATTEND Family Medicine | DX: M25.542 Pain in joints of left hand (principal) ==

== ENCOUNTER → 2022-03-04 | Outpatient (CLI) | payer MEDICARE, OTHER ==
[~2022-03-04] MED LIST changes: +ALLO300T2 PO; +ECOT81TA5 PO
== END ==
LOC: M EKG 11:11
PROVIDERS: ATTEND Urology
DX: Z01.818 Encounter for other preprocedural examination (principal); S62.655A Nondisplaced fracture of middle phalanx of left ring finger, initial encounter for closed fracture; C67.9 Malignant neoplasm of bladder, unspecified; I45.19 Other right bundle-branch block; M79.642 Pain in left hand; Y92.9 Unspecified place or not applicable; Y93.9 Activity, unspecified; Y99.9 Unspecified external cause status

== ENCOUNTER → 2022-04-07 | Outpatient (CLI) | payer MEDICARE, OTHER | LOC: M LAB 11:22 | PROVIDERS: ATTEND Urology | DX: C67.9 Malignant neoplasm of bladder, unspecified (principal); Z01.818 Encounter for other preprocedural examination; N39.0 Urinary tract infection, site not specified ==

== ENCOUNTER → 2022-04-13 | Outpatient (CLI) | payer MEDICARE, OTHER | LOC: M LABSMTC 09:41 | PROVIDERS: ATTEND Anesthesiology | DX: Z20.822 Contact with and (suspected) exposure to COVID-19 (principal) ==

== ENCOUNTER 2022-04-17 06:28 | Day surgery (SDC) | payer MEDICARE, OTHER ==
[~2022-04-17] VITALS: Ht 160 cm; Wt 83.9 kg
[~2022-04-17 06:28] MED LIST changes: +LIDOCAINE 1% MDV 20ML VIAL SQ PRN; +LR 1,000 ML IV ONE; +ceFAZolin SOD 2 GM in IV 1 EA IV ONE
[2022-04-17] MEDS ORDERED: OXYB10TA23 PO (06:55)
[2022-04-17] MEDS ORDERED: propofoL 200 MG/20 ML VIAL As Ordered ONE (08:00)
[2022-04-17] MEDS ORDERED: MIDAZOLAM INJ 2MG/2ML VIAL (J2250 PER 1MG) As Ordered ONE (08:00)
[2022-04-17] MEDS ORDERED: ROCURONIUM BROMIDE 50 MG/5 ML VIAL As Ordered ONE (08:00)
[2022-04-17] MEDS ORDERED: ONDANSETRON 4MG/2ML VIAL As Ordered ONE (08:00)
[2022-04-17] MEDS ORDERED: ACETAMINOPHEN 1000MG 100ML IV BTL (OFIRMEV) (J0131 PER 10MG) As Ordered ONE (08:00)
[2022-04-17] MEDS ORDERED: dexameTHASONE 4 MG/ML 1ML VIAL (J1100 PER 1MG) As Ordered ONE (08:00)
[2022-04-17] MEDS ORDERED: fentaNYL 100 MCG/2 ML INJECTION As Ordered ONE (08:00)
[2022-04-17] MEDS ORDERED: SUGAMMADEX SODIUM 500 MG/5 ML VIAL (BRIDION) As Ordered ONE (08:01)
[2022-04-17] MEDS ORDERED: mitoMYcin 40MG VIAL *UROLOGY* (J9280 PER 5MG) INTRAVESIC ONE (08:40)
[2022-04-17] MEDS ORDERED: LEVO250T3 PO (08:46)
[2022-04-17] MEDS ORDERED: ONDANSETRON 4MG/2ML VIAL IV PRN (08:50)
[2022-04-17] MEDS ORDERED: fentaNYL 100 MCG/2 ML INJECTION IV PRN (08:50)
[2022-04-17] MEDS ORDERED: oxyCODONE 5MG TAB PO PRN (08:50)
[2022-04-17] MEDS ORDERED: LR 1,000 ML IV SCH (08:50)
[2022-04-17] MEDS ORDERED: ACETAMINOPHEN TAB 650MG DOSE (2X325MG) PO PRN (08:50)
[2022-04-17] MEDS ORDERED: LIDOCAINE 2% 100MG/5ML SDV (FOR ANES.) As Ordered ONE (09:09)
[2022-04-17 10:59] VITALS: BP 146/65
== END 2022-04-17 11:04 | disposition home or self-care (01) ==
LOC: M SDC 06:28
PROVIDERS: ATTEND Urology
DX: N30.90 Cystitis, unspecified without hematuria (principal); N40.1 Benign prostatic hyperplasia with lower urinary tract symptoms; C67.9 Malignant neoplasm of bladder, unspecified
CPT/HCPCS: 52234; 88305; J0131; J0690; J1100; J2250; J2405; J3010; J9280

== ENCOUNTER → 2022-06-18 | Outpatient (CLI) | payer MEDICARE, OTHER ==
[~2022-06-18] MED LIST changes: +LEVO250T3 PO; -LIDOCAINE 1% MDV 20ML VIAL SQ PRN; -LR 1,000 ML IV ONE; +OXYB10TA23 PO; -ceFAZolin SOD 2 GM in IV 1 EA IV ONE
[2022-06-18 15:08] LABS: BASO % 0.5 % (0.0-1.0); EOS # 0.3 10^3/uL (0.0-0.5); EOS % 3.5 % (0.0-3.0); HEMATOCRIT 46.4 % (42.0-52.0); LYMPH # 1.8 10^3/uL (1.5-5.0); LYMPH % 21.9 % (24.0-44.0); MEAN CORPUSCULAR HEMOGLOBIN 27.6 pg (27.0-33.0); MEAN CORPUSCULAR HGB CONC 32.3 g/dl (32.0-36.5); MEAN CORPUSCULAR VOLUME 85.5 fl (80.0-96.0); MONO # 0.8 10^3/uL (0.0-0.8); MONO % 10.1 % (2.0-8.0); NEUTROPHILS # 5.3 10^3/uL (1.5-8.5); NEUTROPHILS % 63.5 % (36.0-66.0); PLATELET COUNT, AUTOMATED 207 10^3/uL (150-450); RED BLOOD COUNT 5.43 10^6/uL (4.30-6.10); WHITE BLOOD COUNT 8.3 10^3/uL (4.0-10.0)
[2022-06-18 15:29] LABS: HEMOGLOBIN A1c 6.3 %
[2022-06-18 15:30] LABS: ERYTHROCYTE SEDIMENTATION RATE 17 mm/hr (0-20)
[2022-06-18 15:43] LABS: ALBUMIN 3.5 GM/DL (3.2-5.2); ALT/SGPT 87 U/L (12-78); BILIRUBIN,TOTAL 1.3 MG/DL (0.2-1.0); BLOOD UREA NITROGEN 18 MG/DL (7-18); CALCIUM LEVEL 9.4 MG/DL (8.8-10.2); CARBON DIOXIDE LEVEL 26 MEQ/L (21-32); CHLORIDE LEVEL 109 MEQ/L (98-107); CREATININE FOR GFR 0.88 MG/DL (0.70-1.30); GLOMERULAR FILTRATION RATE > 60.0 (>42); GLUCOSE, FASTING 134 MG/DL (70-100); POTASSIUM SERUM 4.2 MEQ/L (3.5-5.1); RHEUMATOID FACTOR QUANT < 10.0 IU/ML (<15.0); SODIUM LEVEL 141 MEQ/L (136-145); THYROID STIMULATING HORMONE 0.323 uIU/ML (0.358-3.740); TOTAL PROTEIN 7.1 GM/DL (6.4-8.2)
[2022-06-18 16:21] LABS: VITAMIN B12 LEVEL 533 PG/ML
[2022-06-18 16:22] LABS: FOLATE 16.6 NG/ML
== END ==
LOC: M PLALAB 10:01
PROVIDERS: ATTEND Psychiatry & Neurology Neurology
DX: F09 Unspecified mental disorder due to known physiological condition (principal); Z79.899 Other long term (current) drug therapy; Z79.82 Long term (current) use of aspirin

== ENCOUNTER → 2022-06-19 | Outpatient (REF) | payer MEDICARE, OTHER ==
[2022-06-19 18:37] LABS: APPEARANCE, URINE CLOUDY (CLEAR); BACTERIA, URINE AUTO NEGATIVE (NEGATIVE); BILIRUBIN, URINE AUTO NEGATIVE (NEGATIVE); BLOOD, URINE BLOOD 3+ (NEGATIVE); CALCIUM OXALATE CRYSTALS SMALL; COLOR, URINE YELLOW (YELLOW); GLUCOSE, URINE (UA) AUTO NEGATIVE (NEGATIVE); KETONE, URINE AUTO NEGATIVE (NEGATIVE); LEUKOCYTE ESTERASE, URINE AUTO 1+ (NEGATIVE); MUCUS, URINE SMALL (NEGATIVE); NITRITE, URINE AUTO NEGATIVE (NEGATIVE); PROTEIN, URINE AUTO 1+ mg/dL (NEGATIVE); RBC, URINE AUTO 4 /HPF (0-3); SQUAMOUS EPITHELIAL CELL UR AU 0 /HPF (0-6); UROBILINOGEN, URINE AUTO 0.2 mg/dL (0.0-2.0); WBC, URINE AUTO 35 /HPF (0-3)
== END ==
LOC: M SMT 16:44
PROVIDERS: ATTEND Urology
DX: R30.0 Dysuria (principal)

== ENCOUNTER → 2022-06-26 | Outpatient (REF) | payer MEDICARE, OTHER ==
[~2022-06-26] MED LIST changes: +LEVO1TAB38 PO; -LEVO250T3 PO
[2022-06-26 17:26] LABS: APPEARANCE, URINE CLEAR (CLEAR); BACTERIA, URINE AUTO NEGATIVE (NEGATIVE); BILIRUBIN, URINE AUTO NEGATIVE (NEGATIVE); BLOOD, URINE BLOOD 2+ (NEGATIVE); COLOR, URINE STRAW (YELLOW); GLUCOSE, URINE (UA) AUTO NEGATIVE (NEGATIVE); KETONE, URINE AUTO NEGATIVE (NEGATIVE); LEUKOCYTE ESTERASE, URINE AUTO TRACE (NEGATIVE); MUCUS, URINE SMALL (NEGATIVE); NITRITE, URINE AUTO NEGATIVE (NEGATIVE); PROTEIN, URINE AUTO NEGATIVE (NEGATIVE); RBC, URINE AUTO 1 /HPF (0-3); SPECIFIC GRAVITY URINE AUTO 1.006 (1.002-1.035); SQUAMOUS EPITHELIAL CELL UR AU 0 /HPF (0-6); UROBILINOGEN, URINE AUTO 0.2 mg/dL (0.0-2.0); WBC, URINE AUTO 3 /HPF (0-3)
== END ==
LOC: M SMT 16:47
PROVIDERS: ATTEND Urology
DX: N39.0 Urinary tract infection, site not specified (principal)

== ENCOUNTER → 2022-09-28 | Outpatient (REF) | payer MEDICARE, OTHER | LOC: M SMT 12:51 | PROVIDERS: ATTEND Urology | DX: C67.9 Malignant neoplasm of bladder, unspecified (principal) ==

== ENCOUNTER → 2022-12-25 | Outpatient (CLI) | payer MEDICARE, OTHER ==
[2022-12-25 11:33] LABS: BLOOD UREA NITROGEN 18 MG/DL (9-23); CREATININE FOR GFR 0.72 MG/DL (0.70-1.30); GLOMERULAR FILTRATION RATE > 60.0 (>42)
== END ==
LOC: M LAB 09:58
PROVIDERS: ATTEND Surgery
DX: Z01.810 Encounter for preprocedural cardiovascular examination (principal)

== ENCOUNTER → 2023-01-06 | Outpatient (CLI) | payer MEDICARE, OTHER ==
[~2023-01-06] MED LIST changes: +ISOVUE-370 76% 100ML VIAL As Ordered ONE
== END ==
LOC: M RAD 08:29
PROVIDERS: ATTEND Surgery
DX: D17.1 Benign lipomatous neoplasm of skin and subcutaneous tissue of trunk (principal); R91.8 Other nonspecific abnormal finding of lung field
CPT/HCPCS: 71260; Q9967

== ENCOUNTER → 2023-01-08 | Outpatient (CLI) | payer MEDICARE, OTHER ==
[~2023-01-08] MED LIST changes: -ISOVUE-370 76% 100ML VIAL As Ordered ONE
== END ==
LOC: M PLAIMG 09:11
PROVIDERS: ATTEND Family Medicine
DX: R10.12 Left upper quadrant pain (principal); C67.9 Malignant neoplasm of bladder, unspecified; K80.20 Calculus of gallbladder without cholecystitis without obstruction; R91.8 Other nonspecific abnormal finding of lung field

== ENCOUNTER 2023-03-16 13:46 | Day surgery (SDC) | payer MEDICARE, OTHER ==
[~2023-03-16] VITALS: Ht 160 cm; Wt 85.7 kg
[2023-03-16] MEDS ORDERED: LR 1,000 ML IV SCH (13:50)
[2023-03-16] MEDS ORDERED: ceFAZolin SOD 2 GM in IV 1 EA IV ONE (14:40)
[2023-03-16] MEDS ORDERED: MIDAZOLAM INJ 2MG/2ML VIAL As Ordered ONE (16:21)
[2023-03-16] MEDS ORDERED: LIDOCAINE 2% 100MG/5ML SDV (FOR ANES.) As Ordered ONE (16:22)
[2023-03-16] MEDS ORDERED: propofoL 200 MG/20 ML VIAL As Ordered ONE (16:22)
[2023-03-16] MEDS ORDERED: fentaNYL 100 MCG/2 ML INJECTION As Ordered ONE (16:22)
[2023-03-16] MEDS ORDERED: BUPIVACAINE/EPIN 0.25% 30ML VIAL As Ordered ONE (16:41)
[2023-03-16] MEDS ORDERED: LIDOCAINE 1% SDV 30ML VIAL As Ordered ONE (16:43)
[2023-03-16 17:45] VITALS: BP 174/84
== END 2023-03-16 17:50 | disposition home or self-care (01) ==
LOC: M SDC 13:46
PROVIDERS: ATTEND Surgery
DX: D17.1 Benign lipomatous neoplasm of skin and subcutaneous tissue of trunk (principal); I10 Essential (primary) hypertension; I25.10 Atherosclerotic heart disease of native coronary artery without angina pectoris; E11.9 Type 2 diabetes mellitus without complications; M48.00 Spinal stenosis, site unspecified; F43.10 Post-traumatic stress disorder, unspecified; I69.392 Facial weakness following cerebral infarction; R91.8 Other nonspecific abnormal finding of lung field; G47.30 Sleep apnea, unspecified; N40.1 Benign prostatic hyperplasia with lower urinary tract symptoms; R32 Unspecified urinary incontinence; Z87.891 Personal history of nicotine dependence; Z79.899 Other long term (current) drug therapy; Z79.82 Long term (current) use of aspirin; Z95.5 Presence of coronary angioplasty implant and graft
CPT/HCPCS: 11406; 12034; 88304; 93005; J0690; J2250; J3010

== ENCOUNTER → 2023-03-18 | Outpatient (CLI) | payer MEDICARE, OTHER | LOC: M PLAIMG 14:14 | PROVIDERS: ATTEND Family Medicine | DX: M54.50 Low back pain, unspecified (principal) ==

== ENCOUNTER → 2023-03-29 | Outpatient (REF) | payer MEDICARE, OTHER | LOC: M SMT 13:05 | PROVIDERS: ATTEND Urology | DX: C67.9 Malignant neoplasm of bladder, unspecified (principal) ==

== ENCOUNTER → 2023-03-31 | Outpatient (CLI) | payer MEDICARE, OTHER | LOC: M RAD 11:27 | PROVIDERS: ATTEND Family Medicine | DX: I70.213 Atherosclerosis of native arteries of extremities with intermittent claudication, bilateral legs (principal) ==

== ENCOUNTER → 2023-06-03 | Outpatient (CLI) | payer MEDICARE, OTHER ==
[~2023-06-03] MED LIST changes: +ISOVUE-370 76% 100ML VIAL As Ordered ONE
== END ==
LOC: M RAD 14:04
PROVIDERS: ATTEND Surgery Vascular Surgery
DX: I73.9 Peripheral vascular disease, unspecified (principal)
CPT/HCPCS: 75635; Q9967

== ENCOUNTER → 2023-10-08 | Outpatient (REF) | payer MEDICARE, OTHER ==
[~2023-10-08] MED LIST changes: -ISOVUE-370 76% 100ML VIAL As Ordered ONE; +POTA-151 PO
== END ==
LOC: M SMT 17:13
PROVIDERS: ATTEND Urology
DX: C67.9 Malignant neoplasm of bladder, unspecified (principal); R39.15 Urgency of urination; Z79.891 Long term (current) use of opiate analgesic; Z79.82 Long term (current) use of aspirin; Z79.899 Other long term (current) drug therapy; Z90.79 Acquired absence of other genital organ(s); Z80.8 Family history of malignant neoplasm of other organs or systems; Z80.6 Family history of leukemia

== ENCOUNTER 2023-10-13 10:20 | Outpatient (RCR) | payer MEDICARE, OTHER ==
[~2023-10-13 10:20] MED LIST changes: -POTA-151 PO
[2023-10-15] MEDS ORDERED: MYRB50TA PO (18:03)
[2023-10-15] MEDS ORDERED: POTA-151 PO (23:33)
== END 2023-10-28 ==
LOC: M ST 10:20
PROVIDERS: ATTEND Family Medicine
DX: R13.10 Dysphagia, unspecified (principal)

== ENCOUNTER 2023-10-15 17:46 | Emergency (ER) | payer MEDICARE, OTHER ==
[~2023-10-15] VITALS: Ht 160 cm; Wt 81.1 kg
[2023-10-15 17:48] VITALS: TEMP 97.9
[2023-10-15] MEDS ORDERED: MYRB50TA PO (18:03)
[2023-10-15 19:00] LABS: BASO % 0.5 % (0.0-1.0); EOS # 0.2 10^3/uL (0.0-0.5); HEMATOCRIT 43.7 % (42.0-52.0); HEMOGLOBIN 14.5 g/dl (13.5-17.5); LYMPH # 2.7 10^3/uL (1.5-5.0); LYMPH % 31.3 % (24.0-44.0); MEAN CORPUSCULAR HEMOGLOBIN 27.2 pg (27.0-33.0); MEAN CORPUSCULAR HGB CONC 33.2 g/dl (32.0-36.5); MONO # 0.7 10^3/uL (0.0-0.8); MONO % 8.3 % (2.0-8.0); NEUTROPHILS % 57.7 % (36.0-66.0); PLATELET COUNT, AUTOMATED 207 10^3/uL (150-450); RED BLOOD COUNT 5.33 10^6/uL (4.30-6.10); WHITE BLOOD COUNT 8.6 10^3/uL (4.0-10.0)
[2023-10-15 19:14] LABS: INR 1.11; PARTIAL THROMBOPLASTIN TIME 32.1 SECONDS (24.8-34.2)
[2023-10-15 19:28] LABS: LIPASE 39 U/L (12-53)
[2023-10-15 19:36] LABS: RSV AMPLIFICATION NEGATIVE (NEGATIVE)
[2023-10-15 19:38] LABS: ALBUMIN 3.4 G/DL (3.2-5.2); ALKALINE PHOSPHATASE 103 U/L (46-116); ALT/SGPT 45 U/L (7.0-40); AST/SGOT 62 U/L (<34); BILIRUBIN,DIRECT 0.4 MG/DL (<0.4); BILIRUBIN,TOTAL 1.6 MG/DL (0.3-1.2); BLOOD UREA NITROGEN 14 MG/DL (9-23); CALCIUM LEVEL 9.1 MG/DL (8.3-10.6); CARBON DIOXIDE LEVEL 30 MMOL/L (20-31); CHLORIDE LEVEL 104 MMOL/L (98-107); CK-MB VALUE MASS < 1.0 NG/ML (<3.6); CPK CREATINE PHOSPHOKINASE 62 U/L (46-171); CREATININE FOR GFR 0.74 MG/DL (0.70-1.30); GLOMERULAR FILTRATION RATE > 60.0 (>42); GLUCOSE, FASTING 122 MG/DL (74-106); MB/CK RELATIVE INDEX 1.61 (< OR =4); POTASSIUM SERUM 2.9 MMOL/L (3.5-5.1); SODIUM LEVEL 144 MMOL/L (136-145); THYROID STIMULATING HORMONE 0.736 uIU/ML (0.55-4.78); TOTAL PROTEIN 6.8 G/DL (5.7-8.2)
[2023-10-15] MEDS ORDERED: hydrALAZINE 20MG/ML 1ML VIAL IV STA ×2 (19:38→20:31)
[2023-10-15] MEDS ORDERED: KCL 10MEQ/100ML SWI (KRUN) 10 MEQ in IV 1 EA IV ONE (19:40)
[2023-10-15] MEDS ORDERED: POTASSIUM CHLORIDE 10MEQ SR TABLET PO ONE (19:40)
[2023-10-15 20:46] VITALS: BP 181/93
[2023-10-15 21:20] LABS: CK-MB VALUE MASS < 1.0 NG/ML (<3.6)
[2023-10-15 21:21] LABS: CPK CREATINE PHOSPHOKINASE 50 U/L (46-171)
[2023-10-15 23:17] LABS: BLOOD UREA NITROGEN 13 MG/DL (9-23); CALCIUM LEVEL 9.2 MG/DL (8.3-10.6); CARBON DIOXIDE LEVEL 28 MMOL/L (20-31); CHLORIDE LEVEL 105 MMOL/L (98-107); CK-MB VALUE MASS < 1.0 NG/ML (<3.6); CPK CREATINE PHOSPHOKINASE 57 U/L (46-171); CREATININE FOR GFR 0.67 MG/DL (0.70-1.30); GLOMERULAR FILTRATION RATE > 60.0 (>42); GLUCOSE, FASTING 146 MG/DL (74-106); MB/CK RELATIVE INDEX 1.75 (< OR =4); POTASSIUM SERUM 3.2 MMOL/L (3.5-5.1); SODIUM LEVEL 143 MMOL/L (136-145)
[2023-10-15] MEDS ORDERED: POTA-151 PO (23:33)
[2023-10-15 23:45] VITALS: BP 176/85; O2SAT 96
== END 2023-10-16 00:04 | disposition home or self-care (01) ==
LOC: M ED 17:46
DX: E87.6 Hypokalemia (principal); I10 Essential (primary) hypertension; Z87.442 Personal history of urinary calculi; Z86.73 Personal history of transient ischemic attack (TIA), and cerebral infarction without residual deficits; E78.5 Hyperlipidemia, unspecified; K21.9 Gastro-esophageal reflux disease without esophagitis; Z95.5 Presence of coronary angioplasty implant and graft; Z79.82 Long term (current) use of aspirin; Z79.899 Other long term (current) drug therapy
CPT/HCPCS: 71045; 80047; 80048; 80076; 82550; 82553; 83690; 83735; 83880; 84443; 84484; 85025; 85610; 85730; 87631; 93005; 93041; 94760; 96365; 96375; 96376; 99285; J0360

== ENCOUNTER → 2023-10-18 | Outpatient (CLI) | payer MEDICARE, OTHER ==
[~2023-10-18] MED LIST changes: +POTA-151 PO
[2023-10-18 13:08] LABS: BLOOD UREA NITROGEN 14 MG/DL (9-23); CALCIUM LEVEL 9.2 MG/DL (8.3-10.6); CARBON DIOXIDE LEVEL 30 MMOL/L (20-31); CHLORIDE LEVEL 105 MMOL/L (98-107); CREATININE FOR GFR 0.79 MG/DL (0.70-1.30); GLOMERULAR FILTRATION RATE > 60.0 (>42); GLUCOSE, FASTING 147 MG/DL (74-106); POTASSIUM SERUM 3.2 MMOL/L (3.5-5.1); SODIUM LEVEL 143 MMOL/L (136-145)
== END ==
LOC: M LAB 12:08
PROVIDERS: ATTEND Family Medicine
DX: E87.6 Hypokalemia (principal)

== ENCOUNTER → 2023-11-11 | Outpatient (CLI) | payer MEDICARE, OTHER | LOC: M CARPUL 07:31 | PROVIDERS: ATTEND Nurse Practitioner Family | DX: R06.02 Shortness of breath (principal) ==

== ENCOUNTER → 2023-11-12 | Outpatient (CLI) | payer MEDICARE, OTHER | LOC: M RAD 07:41 | PROVIDERS: ATTEND Family Medicine | DX: K81.0 Acute cholecystitis (principal); K76.0 Fatty (change of) liver, not elsewhere classified; N28.1 Cyst of kidney, acquired ==

== ENCOUNTER → 2023-12-02 | Outpatient (CLI) | payer MEDICARE, OTHER ==
[2023-12-02 10:48] LABS: CHOLESTEROL LEVEL 156 MG/DL (<200); HDL CHOLESTEROL 31.8 MG/DL (>40); NON-HDL-C 124.2 MG/DL; TRIGLYCERIDES LEVEL 419 MG/DL (<150)
== END ==
LOC: M LAB 09:25
PROVIDERS: ATTEND Physician Assistant
DX: E78.00 Pure hypercholesterolemia, unspecified (principal)

== ENCOUNTER → 2023-12-02 | Outpatient (CLI) | payer MEDICARE, OTHER ==
[2023-12-02 10:49] LABS: ALBUMIN 3.6 G/DL (3.2-5.2); ALKALINE PHOSPHATASE 99 U/L (46-116); ALT/SGPT 63 U/L (7.0-40); AST/SGOT 74 U/L (<34); BILIRUBIN,TOTAL 1.2 MG/DL (0.3-1.2); BLOOD UREA NITROGEN 16 MG/DL (9-23); CALCIUM LEVEL 9.1 MG/DL (8.3-10.6); CARBON DIOXIDE LEVEL 23 MMOL/L (20-31); CHLORIDE LEVEL 109 MMOL/L (98-107); CREATININE FOR GFR 0.86 MG/DL (0.70-1.30); GLOMERULAR FILTRATION RATE > 60.0 (>42); GLUCOSE, FASTING 125 MG/DL (74-106); POTASSIUM SERUM 4.4 MMOL/L (3.5-5.1); SODIUM LEVEL 141 MMOL/L (136-145); TOTAL PROTEIN 6.9 G/DL (5.7-8.2)
== END ==
LOC: M LAB 09:28
PROVIDERS: ATTEND Family Medicine
DX: I10 Essential (primary) hypertension (principal); E78.00 Pure hypercholesterolemia, unspecified

== ENCOUNTER → 2023-12-07 | Outpatient (CLI) | payer MEDICARE, OTHER | LOC: M RAD 10:45 | PROVIDERS: ATTEND Family Medicine | DX: R13.10 Dysphagia, unspecified (principal); Z53.9 Procedure and treatment not carried out, unspecified reason ==

== ENCOUNTER → 2023-12-07 | Outpatient (CLI) | payer MEDICARE, OTHER ==
[~2023-12-07] MED LIST changes: +METHACHOLINE KIT INH ONE
== END ==
LOC: M CARPUL 10:49
PROVIDERS: ATTEND Internal Medicine Pulmonary Disease
DX: R06.02 Shortness of breath (principal)
CPT/HCPCS: 94070; 95070; J7674

== ENCOUNTER → 2023-12-07 | Outpatient (CLI) | payer MEDICARE, OTHER ==
[~2023-12-07] MED LIST changes: +BARIUM SULFATE 700 MG TABLET (E-Z-DISK) As Ordered ONE; +E-Z-PAQUE 96% w/w SUSP 176GM BTL As Ordered ONE; -METHACHOLINE KIT INH ONE; +VARIBAR NECTAR 40% w/v 240ML SUSP BTL As Ordered ONE; +VARIBAR PUDDING 40% w/v 230ML TUBE As Ordered ONE
== END ==
LOC: M RAD 10:46
PROVIDERS: ATTEND Family Medicine
DX: R13.10 Dysphagia, unspecified (principal)

== ENCOUNTER → 2024-02-04 | Outpatient (CLI) | payer MEDICARE, OTHER ==
[~2024-02-04] MED LIST changes: -BARIUM SULFATE 700 MG TABLET (E-Z-DISK) As Ordered ONE; -E-Z-PAQUE 96% w/w SUSP 176GM BTL As Ordered ONE; -VARIBAR NECTAR 40% w/v 240ML SUSP BTL As Ordered ONE; -VARIBAR PUDDING 40% w/v 230ML TUBE As Ordered ONE
[2024-02-04 16:04] LABS: BASO % 0.4 % (0.0-1.0); EOS # 0.1 10^3/uL (0.0-0.5); EOS % 1.2 % (0.0-3.0); HEMATOCRIT 43.1 % (42.0-52.0); HEMOGLOBIN 14.3 g/dl (13.5-17.5); LYMPH # 2.4 10^3/uL (1.5-5.0); LYMPH % 24.7 % (24.0-44.0); MEAN CORPUSCULAR HEMOGLOBIN 28.1 pg (27.0-33.0); MEAN CORPUSCULAR HGB CONC 33.2 g/dl (32.0-36.5); MEAN CORPUSCULAR VOLUME 84.7 fl (80.0-96.0); MONO # 0.8 10^3/uL (0.0-0.8); MONO % 8.1 % (2.0-8.0); NEUTROPHILS # 6.4 10^3/uL (1.5-8.5); NEUTROPHILS % 65.3 % (36.0-66.0); PLATELET COUNT, AUTOMATED 180 10^3/uL (150-450); RED BLOOD COUNT 5.09 10^6/uL (4.30-6.10); WHITE BLOOD COUNT 9.8 10^3/uL (4.0-10.0)
[2024-02-04 16:27] LABS: ALBUMIN 3.5 G/DL (3.2-5.2); ALKALINE PHOSPHATASE 87 U/L (46-116); ALT/SGPT 45 U/L (7.0-40); AST/SGOT 63 U/L (<34); BLOOD UREA NITROGEN 17 MG/DL (9-23); CALCIUM LEVEL 9.1 MG/DL (8.3-10.6); CARBON DIOXIDE LEVEL 26 MMOL/L (20-31); CHLORIDE LEVEL 107 MMOL/L (98-107); CREATININE FOR GFR 0.81 MG/DL (0.70-1.30); GLOMERULAR FILTRATION RATE > 60.0 (>42); GLUCOSE, FASTING 132 MG/DL (74-106); SODIUM LEVEL 140 MMOL/L (136-145); TOTAL PROTEIN 6.9 G/DL (5.7-8.2)
== END ==
LOC: M LAB 15:01
PROVIDERS: ATTEND Family Medicine
DX: Z01.818 Encounter for other preprocedural examination (principal)

== ENCOUNTER → 2024-02-22 | Outpatient (CLI) | payer MEDICARE, OTHER ==
[~2024-02-22] MED LIST changes: +ALBU8.5H; +FLUT12HF2; +LISI40TA4 PO
== END ==
LOC: M SLEEP 20:00
PROVIDERS: ATTEND Nurse Practitioner Family
DX: G47.33 Obstructive sleep apnea (adult) (pediatric) (principal); G47.61 Periodic limb movement disorder

== ENCOUNTER 2024-02-29 08:22 | Day surgery (SDC) | payer MEDICARE, OTHER ==
[~2024-02-29] VITALS: Ht 160 cm; Wt 83.9 kg
[~2024-02-29 08:22] MED LIST changes: +ISOVUE-300 61% 100ML VIAL As Ordered ONE; +LR 1,000 ML IV SCH
[2024-02-29] MEDS ORDERED: ROCURONIUM BROMIDE 50MG/5ML VIAL As Ordered ONE (10:00)
[2024-02-29] MEDS ORDERED: SUGAMMADEX SODIUM 500 MG/5 ML VIAL (BRIDION) As Ordered ONE (10:00)
[2024-02-29] MEDS ORDERED: LIDOCAINE 2% 100MG/5ML SDV (FOR ANES.) As Ordered ONE (10:00)
[2024-02-29] MEDS ORDERED: ONDANSETRON 4MG 2ML VIAL As Ordered ONE (10:02)
[2024-02-29] MEDS ORDERED: KETOROLAC 60MG 2ML VIAL As Ordered ONE (10:02)
[2024-02-29] MEDS ORDERED: fentaNYL 100 MCG/2 ML INJECTION As Ordered ONE (10:05)
[2024-02-29] MEDS ORDERED: MIDAZOLAM INJ 2MG/2ML VIAL As Ordered ONE (10:06)
[2024-02-29] MEDS ORDERED: ePHEDrine SULFATE 25 MG/5 ML(5MG/ML) SYRINGE As Ordered ONE (10:41)
[2024-02-29] MEDS: ceFAZolin SOD 2 GM in IV 1 EA IV ONE (10:44)
[2024-02-29] MEDS ORDERED: oxyCODONE 5MG TAB PO PRN (11:20)
[2024-02-29] MEDS ORDERED: fentaNYL 100 MCG/2 ML INJECTION IV PRN (11:20)
[2024-02-29] MEDS ORDERED: LR 1,000 ML IV SCH (11:20)
[2024-02-29] MEDS ORDERED: ONDANSETRON 4MG 2ML VIAL IV PRN (11:20)
[2024-02-29] MEDS ORDERED: HYDROMORPHONE HCL 0.5 MG/ 0.5 ML SYRINGE IV PRN (11:20)
[2024-02-29] MEDS ORDERED: traMADol 50 MG TAB PO PRN (12:20)
[2024-02-29] MEDS ORDERED: NS 1,000 ML IV SCH (12:20)
[2024-02-29 13:18] VITALS: BP 108/60; TEMP 96.7; O2SAT 95
== END 2024-02-29 13:37 | disposition home or self-care (01) ==
LOC: M SDC 08:22
PROVIDERS: ATTEND Surgery
DX: K80.10 Calculus of gallbladder with chronic cholecystitis without obstruction (principal); K74.60 Unspecified cirrhosis of liver; K66.0 Peritoneal adhesions (postprocedural) (postinfection); I25.10 Atherosclerotic heart disease of native coronary artery without angina pectoris; Z95.5 Presence of coronary angioplasty implant and graft; E11.9 Type 2 diabetes mellitus without complications; F43.10 Post-traumatic stress disorder, unspecified; Z86.73 Personal history of transient ischemic attack (TIA), and cerebral infarction without residual deficits; G47.30 Sleep apnea, unspecified; Z87.891 Personal history of nicotine dependence; Z88.8 Allergy status to other drugs, medicaments and biological substances; Z79.899 Other long term (current) drug therapy
CPT/HCPCS: 47562; 88304; J0665; J0690; J1100; J1885; J2250; J2405; J3010; Q9967

== ENCOUNTER → 2024-04-10 | Outpatient (REF) | payer MEDICARE, OTHER ==
[~2024-04-10] MED LIST changes: -ISOVUE-300 61% 100ML VIAL As Ordered ONE; -LR 1,000 ML IV SCH
== END ==
LOC: M SMT 14:32
PROVIDERS: ATTEND Urology
DX: C67.9 Malignant neoplasm of bladder, unspecified (principal)

== ENCOUNTER 2024-05-28 11:36 | Emergency (ER) | payer MEDICARE, OTHER ==
[~2024-05-28] VITALS: Ht 162.6 cm; Wt 83.2 kg
[2024-05-28 12:27] LABS: BASO # 0.1 10^3/uL (0.0-0.2); BASO % 0.5 % (0.0-1.0); EOS # 0.3 10^3/uL (0.0-0.5); EOS % 2.7 % (0.0-3.0); HEMATOCRIT 38.9 % (42.0-52.0); LYMPH # 1.5 10^3/uL (1.5-5.0); LYMPH % 16.4 % (24.0-44.0); MEAN CORPUSCULAR HEMOGLOBIN 29.6 pg (27.0-33.0); MEAN CORPUSCULAR HGB CONC 33.4 g/dl (32.0-36.5); MEAN CORPUSCULAR VOLUME 88.6 fl (80.0-96.0); MONO # 0.9 10^3/uL (0.0-0.8); NEUTROPHILS # 6.4 10^3/uL (1.5-8.5); NEUTROPHILS % 69.9 % (36.0-66.0); PLATELET COUNT, AUTOMATED 170 10^3/uL (150-450); RED BLOOD COUNT 4.39 10^6/uL (4.30-6.10); WHITE BLOOD COUNT 9.1 10^3/uL (4.0-10.0)
[2024-05-28 12:40] LABS: ERYTHROCYTE SEDIMENTATION RATE 33 mm/hr (0-20)
[2024-05-28 12:44] LABS: INR 1.11; PARTIAL THROMBOPLASTIN TIME 32.8 SECONDS (24.8-34.2)
[2024-05-28 13:01] LABS: C REACTIVE PROTEIN QUANTITATIV < 0.40 MG/DL (<1.0)
[2024-05-28 13:03] LABS: ALBUMIN 3.5 G/DL (3.2-5.2); ALKALINE PHOSPHATASE 77 U/L (46-116); ALT/SGPT 43 U/L (7.0-40); AST/SGOT 44 U/L (<34); BILIRUBIN,DIRECT 0.4 MG/DL (<0.4); BILIRUBIN,TOTAL 1.8 MG/DL (0.3-1.2); BLOOD UREA NITROGEN 32 MG/DL (9-23); CALCIUM LEVEL 9.4 MG/DL (8.3-10.6); CARBON DIOXIDE LEVEL 24 MMOL/L (20-31); CHLORIDE LEVEL 111 MMOL/L (98-107); CREATININE FOR GFR 1.28 MG/DL (0.70-1.30); GLOMERULAR FILTRATION RATE 57.7 (>42); GLUCOSE, FASTING 151 MG/DL (74-106); POTASSIUM SERUM 5.1 MMOL/L (3.5-5.1); SODIUM LEVEL 142 MMOL/L (136-145); TOTAL PROTEIN 6.4 G/DL (5.7-8.2)
[2024-05-28 13:09] LABS: PROCALCITONIN 0.12 ng/ml
[2024-05-28 15:13] VITALS: BP 100/58; TEMP 97.7; O2SAT 95
== END 2024-05-28 15:22 | disposition home or self-care (01) ==
LOC: M ED 11:36
DX: I70.212 Atherosclerosis of native arteries of extremities with intermittent claudication, left leg (principal); M79.605 Pain in left leg; I25.119 Atherosclerotic heart disease of native coronary artery with unspecified angina pectoris; E11.9 Type 2 diabetes mellitus without complications; I10 Essential (primary) hypertension; E78.5 Hyperlipidemia, unspecified; K21.9 Gastro-esophageal reflux disease without esophagitis; Z87.891 Personal history of nicotine dependence; Z79.1 Long term (current) use of non-steroidal anti-inflammatories (NSAID); Z79.51 Long term (current) use of inhaled steroids; Z79.899 Other long term (current) drug therapy

== ENCOUNTER → 2024-06-14 | Outpatient (CLI) | payer MEDICARE, OTHER ==
[2024-06-14 13:15] LABS: BLOOD UREA NITROGEN 38 MG/DL (9-23); CREATININE FOR GFR 1.12 MG/DL (0.70-1.30); GLOMERULAR FILTRATION RATE > 60.0 (>42)
== END ==
LOC: M LAB 11:42
PROVIDERS: ATTEND Physician Assistant
DX: I70.213 Atherosclerosis of native arteries of extremities with intermittent claudication, bilateral legs (principal)

== ENCOUNTER → 2024-06-22 | Outpatient (CLI) | payer MEDICARE, OTHER ==
[~2024-06-22] MED LIST changes: +ISOVUE-370 76% 100ML VIAL As Ordered ONE
== END ==
LOC: M RAD 09:15
PROVIDERS: ATTEND Surgery Vascular Surgery
DX: I70.213 Atherosclerosis of native arteries of extremities with intermittent claudication, bilateral legs (principal)
CPT/HCPCS: 75635; Q9967

== ENCOUNTER → 2024-07-17 | Outpatient (CLI) | payer MEDICARE, OTHER ==
[~2024-07-17] MED LIST changes: -ISOVUE-370 76% 100ML VIAL As Ordered ONE
[2024-07-17 10:45] LABS: BASO % 0.3 % (0.0-1.0); EOS # 0.2 10^3/uL (0.0-0.5); EOS % 2.3 % (0.0-3.0); HEMATOCRIT 41.5 % (42.0-52.0); HEMOGLOBIN 13.1 g/dl (13.5-17.5); LYMPH % 27.6 % (24.0-44.0); MEAN CORPUSCULAR HEMOGLOBIN 28.9 pg (27.0-33.0); MEAN CORPUSCULAR HGB CONC 31.6 g/dl (32.0-36.5); MEAN CORPUSCULAR VOLUME 91.6 fl (80.0-96.0); MONO # 0.7 10^3/uL (0.0-0.8); MONO % 9.3 % (2.0-8.0); NEUTROPHILS # 4.3 10^3/uL (1.5-8.5); NEUTROPHILS % 60.1 % (36.0-66.0); PLATELET COUNT, AUTOMATED 162 10^3/uL (150-450); RED BLOOD COUNT 4.53 10^6/uL (4.30-6.10); WHITE BLOOD COUNT 7.1 10^3/uL (4.0-10.0)
[2024-07-17 10:58] LABS: INR 1.08; PARTIAL THROMBOPLASTIN TIME 33.3 SECONDS (24.8-34.2); PROTHROMBIN TIME 13.7 SECONDS (12.5-14.5)
[2024-07-17 11:17] LABS: BLOOD UREA NITROGEN 20 MG/DL (9-23); CALCIUM LEVEL 9.2 MG/DL (8.3-10.6); CARBON DIOXIDE LEVEL 26 MMOL/L (20-31); CHLORIDE LEVEL 110 MMOL/L (98-107); GLOMERULAR FILTRATION RATE > 60.0 (>42); GLUCOSE, FASTING 114 MG/DL (74-106); POTASSIUM SERUM 4.1 MMOL/L (3.5-5.1); SODIUM LEVEL 143 MMOL/L (136-145)
== END ==
LOC: M LAB 09:42
PROVIDERS: ATTEND Physician Assistant
DX: I70.213 Atherosclerosis of native arteries of extremities with intermittent claudication, bilateral legs (principal); I99.8 Other disorder of circulatory system

== ENCOUNTER → 2024-10-23 | Outpatient (REF) | LOC: M PLAIMG 09:11 | PROVIDERS: ATTEND Internal Medicine | DX: R06.02 Shortness of breath (principal) ==

== ENCOUNTER → 2024-11-16 | Outpatient (CLI) | payer MEDICARE, OTHER | LOC: M RAD 11:49 | PROVIDERS: ATTEND Physician Assistant | DX: I70.612 Atherosclerosis of nonbiological bypass graft(s) of the extremities with intermittent claudication, left leg (principal) ==

== ENCOUNTER → 2025-03-16 | Outpatient (CLI) | payer MEDICARE, OTHER ==
[2025-03-16 11:49] LABS: CREATININE FOR GFR 0.86 MG/DL (0.70-1.30); GLOMERULAR FILTRATION RATE 87.5 (>35)
== END ==
LOC: M LAB 10:14
PROVIDERS: ATTEND Physician Assistant
DX: I73.9 Peripheral vascular disease, unspecified (principal)

== ENCOUNTER → 2025-03-26 | Outpatient (CLI) | payer MEDICARE, OTHER ==
[~2025-03-26] MED LIST changes: -FLOM0.4C39 PO; +TAMS-18 PO
[2025-03-26 12:00] LABS: BASO # 0.1 10^3/uL (0.0-0.2); BASO % 0.5 % (0.0-1.0); EOS # 0.1 10^3/uL (0.0-0.5); EOS % 1.2 % (0.0-3.0); HEMATOCRIT 46.6 % (42.0-52.0); LYMPH # 2.5 10^3/uL (1.5-5.0); LYMPH % 25.2 % (24.0-44.0); MEAN CORPUSCULAR HEMOGLOBIN 26.4 pg (27.0-33.0); MEAN CORPUSCULAR HGB CONC 32.2 g/dl (32.0-36.5); MEAN CORPUSCULAR VOLUME 81.9 fl (80.0-96.0); MONO # 0.9 10^3/uL (0.0-0.8); MONO % 8.6 % (2.0-8.0); NEUTROPHILS # 6.4 10^3/uL (1.5-8.5); NEUTROPHILS % 64.3 % (36.0-66.0); PLATELET COUNT, AUTOMATED 188 10^3/uL (150-450); RED BLOOD COUNT 5.69 10^6/uL (4.30-6.10)
[2025-03-26 12:23] LABS: HEMOGLOBIN A1c 6.4 % (4.0-6.0)
[2025-03-26 12:31] LABS: CREATININE, URINE 36.9 MG/DL; MALB URINE SIEMENS < 3.0 MG/L
[2025-03-26 12:31] LABS: ALBUMIN 3.5 G/DL (3.2-5.2); BILIRUBIN,TOTAL 1.5 MG/DL (0.3-1.2); CALCIUM LEVEL 9.5 MG/DL (8.3-10.6); CREATININE FOR GFR 0.84 MG/DL (0.70-1.30); GLOMERULAR FILTRATION RATE 88.2 (>35); POTASSIUM SERUM 3.7 MMOL/L (3.5-5.1); TOTAL PROTEIN 7.2 G/DL (5.7-8.2)
== END ==
LOC: M LAB 11:20
PROVIDERS: ATTEND Family Medicine
DX: E11.69 Type 2 diabetes mellitus with other specified complication (principal); I50.30 Unspecified diastolic (congestive) heart failure

== ENCOUNTER → 2025-03-29 | Outpatient (CLI) | payer MEDICARE, OTHER ==
[~2025-03-29] MED LIST changes: +ISOVUE-370 76% 100ML VIAL As Ordered ONE
== END ==
LOC: M RAD 09:10
PROVIDERS: ATTEND Surgery Vascular Surgery
DX: K76.0 Fatty (change of) liver, not elsewhere classified (principal); I70.203 Unspecified atherosclerosis of native arteries of extremities, bilateral legs; I77.4 Celiac artery compression syndrome; I70.8 Atherosclerosis of other arteries; Z79.899 Other long term (current) drug therapy; E11.69 Type 2 diabetes mellitus with other specified complication; I50.30 Unspecified diastolic (congestive) heart failure
CPT/HCPCS: 75635; Q9967

== ENCOUNTER → 2025-04-10 | Outpatient (REF) | payer MEDICARE, OTHER ==
[~2025-04-10] MED LIST changes: -ISOVUE-370 76% 100ML VIAL As Ordered ONE
[2025-04-10 15:37] LABS: APPEARANCE, URINE CLEAR (CLEAR); BACTERIA, URINE AUTO NEGATIVE (NEGATIVE); BILIRUBIN, URINE AUTO NEGATIVE (NEGATIVE); BLOOD, URINE BLOOD NEGATIVE (NEGATIVE); COLOR, URINE YELLOW (YELLOW); GLUCOSE, URINE (UA) AUTO NEGATIVE (NEGATIVE); KETONE, URINE AUTO NEGATIVE (NEGATIVE); LEUKOCYTE ESTERASE, URINE AUTO NEGATIVE (NEGATIVE); NITRITE, URINE AUTO NEGATIVE (NEGATIVE); PROTEIN, URINE AUTO NEGATIVE (NEGATIVE); RBC, URINE AUTO 1 /HPF (0-3); SPECIFIC GRAVITY URINE AUTO 1.009 (1.002-1.035); SQUAMOUS EPITHELIAL CELL UR AU 0 /HPF (0-6); UROBILINOGEN, URINE AUTO 0.2 mg/dL (0.0-2.0); WBC, URINE AUTO 1 /HPF (0-3)
== END ==
LOC: M SMT 12:57
PROVIDERS: ATTEND Urology
DX: C67.9 Malignant neoplasm of bladder, unspecified (principal); N39.0 Urinary tract infection, site not specified

== ENCOUNTER → 2025-06-04 | Outpatient (CLI) | payer MEDICARE, OTHER ==
[~2025-06-04] MED LIST changes: +BREO1INH3 INH; +CEPH250T PO; +CLOP75TA99 PO; +LASI20TA3 PO; +LISI40TA10 PO; -LISI40TA4 PO; +PANT40TA29 PO
== END ==
LOC: M PLARAD 08:13
PROVIDERS: ATTEND Physician Assistant
DX: R91.1 Solitary pulmonary nodule (principal)
CPT/HCPCS: 78815; A9552

== ENCOUNTER → 2025-07-26 | Outpatient (CLI) | payer MEDICARE, OTHER ==
[2025-07-26 10:39] LABS: BASO # 0.0 10^3/uL (0.0-0.2); BASO % 0.3 % (0.0-1.0); EOS # 0.2 10^3/uL (0.0-0.5); EOS % 1.9 % (0.0-3.0); LYMPH # 1.6 10^3/uL (1.5-5.0); LYMPH % 20.3 % (24.0-44.0); MONO # 0.7 10^3/uL (0.0-0.8); MONO % 8.9 % (2.0-8.0); NEUTROPHILS # 5.3 10^3/uL (1.5-8.5); NEUTROPHILS % 68.3 % (36.0-66.0); PLATELET COUNT, AUTOMATED 228 10^3/uL (150-450)
[2025-07-26 11:00] LABS: ESTIMATED AVERAGE GLUCOSE 137.0 MG/DL (60-110)
[2025-07-26 11:02] LABS: IRON (FE) 30 UG/DL (65-175)
[2025-07-26 11:03] LABS: ALT/SGPT 44 U/L (7.0-40); AST/SGOT 65 U/L (<34); CALCIUM LEVEL 9.3 MG/DL (8.3-10.6); CARBON DIOXIDE LEVEL 26 MMOL/L (20-31); CHLORIDE LEVEL 110 MMOL/L (98-107); CREATININE FOR GFR 0.84 MG/DL (0.70-1.30); GLOMERULAR FILTRATION RATE 88.2 (>35); PERCENT SATURATION 8.3 % (19.7-50.0); POTASSIUM SERUM 4.0 MMOL/L (3.5-5.1); SODIUM LEVEL 146 MMOL/L (136-145)
[2025-07-26 11:07] LABS: HEPATITIS B SURFACE ANTIBODY NEGATIVE (POSITIVE)
[2025-07-26 11:40] LABS: HEPATITIS C VIRUS ABY INDEX < 0.02 INDEX (<0.8)
[2025-07-30 15:12] LABS: ANTI-MITOCHONDRIAL ANTIBODY NEGATIVE (NEGATIVE)
[2025-07-31 11:14] LABS: ALPHA 1 ANTITRYPSIN 111 mg/dL (83-199); CERULOPLASMIN 24.0 mg/dL (14-30)
[2025-08-02 06:23] LABS: ANTI-SMOOTH MUSCLE ANTIBODY < 20 U (<20)
== END ==
LOC: M LAB 09:46
DX: K76.0 Fatty (change of) liver, not elsewhere classified (principal)

== ENCOUNTER → 2025-09-10 | Outpatient (CLI) | payer MEDICARE, OTHER ==
[2025-09-10 12:28] LABS: PLATELET COUNT, AUTOMATED 178 10^3/uL (150-450)
[2025-09-10 12:39] LABS: INR 1.28
[2025-09-10 12:50] LABS: ALT/SGPT 48.0 U/L (7.0-40); AST/SGOT 70.0 U/L (<34); CALCIUM LEVEL 9.2 MG/DL (8.3-10.6); CARBON DIOXIDE LEVEL 25.0 MMOL/L (20-31); CHLORIDE LEVEL 104.0 MMOL/L (98-107); CREATININE FOR GFR 0.93 MG/DL (0.70-1.30); GLOMERULAR FILTRATION RATE 83.0 (>35); POTASSIUM SERUM 4.2 MMOL/L (3.5-5.1); SODIUM LEVEL 143.0 MMOL/L (136-145)
== END ==
LOC: M LAB 10:22
PROVIDERS: ATTEND Physician Assistant Medical
DX: K74.60 Unspecified cirrhosis of liver (principal)

== ENCOUNTER → 2025-09-12 | Outpatient (CLI) | payer MEDICARE, OTHER ==
[~2025-09-12] MED LIST changes: +ISOVUE-370 76% 100 ML VIAL As Ordered ONE
== END ==
LOC: M RAD 15:03
PROVIDERS: ATTEND Physician Assistant Medical
DX: K74.60 Unspecified cirrhosis of liver (principal)
CPT/HCPCS: 74170; Q9967

== ENCOUNTER → 2025-09-19 | Outpatient (CLI) | payer MEDICARE, OTHER ==
[~2025-09-19] MED LIST changes: -ISOVUE-370 76% 100 ML VIAL As Ordered ONE
[2025-09-19 09:29] LABS: BASO # 0.0 10^3/uL (0.0-0.2); BASO % 0.4 % (0.0-1.0); EOS # 0.2 10^3/uL (0.0-0.5); EOS % 3.3 % (0.0-3.0); LYMPH # 1.4 10^3/uL (1.5-5.0); LYMPH % 19.5 % (24.0-44.0); MONO # 0.7 10^3/uL (0.0-0.8); MONO % 9.8 % (2.0-8.0); NEUTROPHILS # 4.8 10^3/uL (1.5-8.5); NEUTROPHILS % 66.6 % (36.0-66.0); PLATELET COUNT, AUTOMATED 185 10^3/uL (150-450)
[2025-09-19 09:41] LABS: INR 1.15
[2025-09-19 10:03] LABS: ALT/SGPT 48.0 U/L (7.0-40); AST/SGOT 77.0 U/L (<34); CALCIUM LEVEL 9.2 MG/DL (8.3-10.6); CARBON DIOXIDE LEVEL 26.0 MMOL/L (20-31); CHLORIDE LEVEL 103.0 MMOL/L (98-107); CREATININE FOR GFR 0.88 MG/DL (0.70-1.30); GLOMERULAR FILTRATION RATE 86.4 (>35); POTASSIUM SERUM 4.1 MMOL/L (3.5-5.1); SODIUM LEVEL 142.0 MMOL/L (136-145)
== END ==
LOC: M LAB 08:44
PROVIDERS: ATTEND Internal Medicine Gastroenterology
DX: K74.60 Unspecified cirrhosis of liver (principal); K76.0 Fatty (change of) liver, not elsewhere classified; R97.0 Elevated carcinoembryonic antigen [CEA]

== ENCOUNTER → 2025-10-05 | Outpatient (CLI) | payer MEDICARE, OTHER | LOC: M RAD 13:36 | PROVIDERS: ATTEND Internal Medicine Pulmonary Disease | DX: R91.8 Other nonspecific abnormal finding of lung field (principal); K44.9 Diaphragmatic hernia without obstruction or gangrene; J43.9 Emphysema, unspecified; J98.11 Atelectasis ==